=== PATIENT | female | born 1940 | race Caucasian/White ===

== ENCOUNTER 2017-03-16 09:31 | Emergency (ER) | payer MEDICARE, BC ==
[2017-03-16 09:36] VITALS: BP 141/76
--- NOTE | 2017-03-16 12:14 | EDM.PDOC ---
ED HPI NEURO - General Chief Complaint: Neuro Symptoms/Deficits Stated Complaint: blurry vision Time Seen by Provider: 03/16/17 09:45 Source of Information: Reports: Patient History Limitations: Reports: No limitations - History of Present Illness INITIAL COMMENTS - FREE TEXT/NARRATIVE: Patient presents to the ER today with blurred vision for one hour in her left eye. She states she has been having increased issues with dizziness and actually had a previous syncopal episode. She had that evaluated yesterday by Dr. Rico. He did lab work, put her on a holter monitor and ordered a carotid ultrasound and an echo. This am she awoke with the blurred vision which is a new concern for her. Patient states the episode lasted an hour but now is clear. Denies any other neurological changes. No numbness, tingling, weakness in her extremities. Has a mild headache. 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 Did check her blood sugar this am during this "spell" and it was 150. Denies any chest pain or shortness of breath. No falls. No recent head trauma. Symptom Onset Date: 03/16/17 Timing/Duration: Reports: Hour(s): Location (Neuro Complaint): Reports: other (eye) Quality (Neuro Complaint): Reports: other (blurred vision) Severity: moderate Associated Symptoms: Reports: headaches, syncope, other (dizziness). Denies: confusion, shortness of breath, weakness, fever/chills, nausea/vomiting - Related Data Allergies/ADRs: Allergies Allergy/AdvReac Type Severity Reaction Status Date / Time amiloride HCl Allergy Rash Verified 03/16/17 09:38 [From Moduretic] hydrochlorothiazide Allergy Rash Verified 03/16/17 09:38 [From Moduretic] Home Meds: Home Meds Cholecalciferol (Vitamin D3) [Vitamin D3] 5,000 unit PO BEDTIME 11/01/13 [ History] Furosemide 20 mg PO DAILY 11/01/13 [History] Magnesium Oxide 1,000 mg PO DAILY 11/01/13 [History] Simvastatin [Zocor] 40 mg PO BEDTIME 11/01/13 [History] Ubidecarenone [Co Q-10] 100 mg PO BEDTIME 11/01/13 [History] Vitamin B Complex [B Complex] 1 each PO DAILY 11/01/13 [History] Allopurinol [Allopurinol] 100 mg PO DAILY 08/29/14 [History] Aspirin [Low Dose Aspirin EC] 81 mg PO BEDTIME 08/29/14 [History] Carvedilol [Coreg] 3.125 mg PO BID 08/29/14 [History] Cranberry 2 cap PO BEDTIME 12/10/15 [History] Insulin Aspart [NovoLOG] 100 unit SQ ASDIRECTED 08/20/16 [History] Liraglutide [Victoza] 1.2 mg INJECT DAILY 08/20/16 [History] Insulin Detemir [Levemir] 48 units SUBCUT BEDTIME 08/21/16 [History] Diethylpropion HCl [Diethylpropion HCl ER] 75 mg PO DAILY 10/29/16 [History] Past Medical History HEENT History: Reports: Allergic rhinitis, Impaired vision Cardiovascular History: Reports: Bypass, High cholesterol, Hypertension Gastrointestinal History: Reports: GERD Genitourinary History: Reports: Urinary incontinence, UTI, recurrent Endocrine/Metabolic History: Reports: Diabetes, type II - Past Surgical History HEENT Surgical History: Reports: Detached retina Cardiovascular Surgical History: Reports: Valve replacement GI Surgical History: Reports: Cholecystectomy, Hernia, abdominal Female Surgical History: Reports: Hysterectomy Other Female Surgeries/Procedures: has a pacemaker. Other Musculoskeletal Surgeries/Procedures:: Also has 3 plates in her L) leg. Social & Family History - Tobacco Use Smoking Status *Q: Never Smoker Used Tobacco, but Quit: Yes Month Tobacco Last Used: many years ago Second Hand Smoke Exposure: No - Caffeine Use Caffeine Use: Reports: Coffee - Alcohol Use Days Per Week of Alcohol Use: 0 - Recreational Drug Use Recreational Drug Use: No ED ROS GENERAL - Review of Systems Review Of Systems: See Below Constitutional: Denies: fever, chills, malaise, weakness, fatigue, decreased appetite HEENT: Reports: Vertigo, Vision change. Denies: Ear discharge, Ear pain, Eye discharge, Eye pain, Rhinitis, Sinus problem, Throat pain Respiratory: Denies: Shortness of Breath, Wheezing, Cough, Sputum Cardiovascular: Reports: Syncope. Denies: Chest pain, Edema, Lightheadedness Endocrine: Denies: fatigue GI/Abdominal: Denies: Abdominal pain, Black stool, Bloody stool, Nausea, Vomiting : Reports: no symptoms Musculoskeletal: Reports: no symptoms Skin: Reports: no symptoms Neurological: Reports: Dizziness, Headache, Syncope Psychiatric: Reports: No symptoms ED EXAM, NEURO - Physical Exam Exam: See Below Exam Limited By: No limitations General Appearance: alert, WD/WN, no apparent distress Eye Exam: bilateral eye: EOMI, normal fundi, normal inspection, PERRL Nose: normal inspection, normal mucosa, no blood Throat/Mouth: Normal inspection, Normal oropharynx Head Exam: normocephalic Neck: normal inspection, supple, non-tender Respiratory/Chest: no respiratory distress, lungs clear, normal breath sounds Cardiovascular: normal peripheral pulses, regular rate, rhythm, no edema GI/Abdominal: normal bowel sounds, soft, non tender Neurological: alert, normal mood/affect, CN II-XII intact, oriented x 3 Extremities: normal inspection, normal range of motion, non-tender Psychiatric: normal affect, normal mood Skin Exam: Warm, Dry, Intact Course - Vital Signs Last Recorded V/S: Last Vital Signs Temp 96.2 F 03/16/17 09:32 Pulse 70 03/16/17 09:32 Resp 16 03/16/17 09:32 BP 141/76 H 03/16/17 09:32 Pulse Ox 96 03/16/17 09:32 - Orders/Labs/Meds Orders: Active Orders 24 hr Category Date Time Status Ang Head [CT] Stat Exams 03/16/17 09:55 Taken CTA Neck W & W/O Contrast [Ang Neck] [CT] Stat Exams 03/16/17 09:55 Taken Head wo Cont [CT] Stat Exams 03/16/17 09:43 Taken - Re-Assessments/Exams Free Text/Narrative Re-Assessment/Exam: 03/16/17 CT scan of head and CTA of head and neck are clear. Patient informed. ADvised that labs from yesterday were negative. Did contact Dr. Mendoza's office. Discussed with Dr. Rico. Will complete course of holter and see Dr. Mendoza for more thorough eye exam this afternoon after she leaves here. Departure - Departure Time of Disposition: 12:13 Disposition: Home, Self-Care 01 Condition: fair Clinical Impression: Blurred vision, left eye Referrals: Cholo Rico MD [Primary Care Provider] - Forms: ED Department Discharge Additional Instructions: 1. Finish course with Holter monitor as directed by Dr. Rico 2. Meclizine as needed for dizziness 3. Follow up with Dr. Mendoza at 1230 today 4. Follow up with Dr. Rico for results/further testing as needed if symptoms persist - My Orders Last 24 Hours: My Active Orders 03/16/17 09:43 Head wo Cont [CT] Stat 03/16/17 09:55 Ang Head [CT] Stat CTA Neck W & W/O Contrast [Ang Neck] [CT] Stat - Assessment/Plan Last 24 Hours: My Active Orders 03/16/17 09:43 Head wo Cont [CT] Stat 03/16/17 09:55 Ang Head [CT] Stat CTA Neck W & W/O Contrast [Ang Neck] [CT] Stat
== END 2017-03-16 12:20 | disposition home or self-care (01) ==
LOC: CC.ED 09:31
DX: H53.8 Other visual disturbances (principal); E78.00 Pure hypercholesterolemia, unspecified; I10 Essential (primary) hypertension; K21.9 Gastro-esophageal reflux disease without esophagitis; Z87.440 Personal history of urinary (tract) infections; E11.9 Type 2 diabetes mellitus without complications; Z79.82 Long term (current) use of aspirin; Z79.4 Long term (current) use of insulin; Z79.899 Other long term (current) drug therapy; Z88.8 Allergy status to other drugs, medicaments and biological substances; Z95.1 Presence of aortocoronary bypass graft; Z90.49 Acquired absence of other specified parts of digestive tract; Z90.710 Acquired absence of both cervix and uterus
CPT/HCPCS: 70450; 70496; 70498; 99283; 99284; Q9967

== ENCOUNTER 2017-04-04 14:00 | Inpatient (IN) | payer MEDICARE, BC ==
--- NOTE | 2017-04-04 19:04 | PCM.PN ---
- General Info Date of Service: 04/04/17 Functional Status: Reports: pain controlled, tolerating diet Pain Score: 3 - Review of Systems General: Reports: No Symptoms HEENT: Reports: no symptoms Pulmonary: Reports: no symptoms Cardiovascular: Reports: No Symptoms Gastrointestinal: Reports: No symptoms Genitourinary: Reports: no symptoms Musculoskeletal: Reports: joint pain (right posterior pelvis pain. ) Skin: Reports: bruising (right upper forehead with hematoma. ) Neurological: Reports: No Symptoms Psychiatric: Reports: no symptoms - Patient Data Weight - most recent: 190 lb Lab Results last 24 hrs: Laboratory Results - last 24 hr 04/04/17 Range/Units 17:46 POC Glucose 330 H (75-105) mg/dl - Exam General: alert, oriented, cooperative, no acute distress HEENT: Pupils equal, Pupils reactive, Mucous membr. moist/pink Neck: supple Lungs: Clear to auscultation, Normal respiratory effort Cardiovascular: Regular Rate, Regular Rhythm Abdomen: no tenderness Back Exam: Normal Inspection, Full Range of Motion Extremities: no edema, normal pulses, no tenderness/swelling, no clubbing, no cyanosis, no calf tenderness, other (right posterior hip/pelvis pain, tenderness. worse with ROM. Pulses +2, cap refill <2 sec, sensory/motor function intact. Neurovascular intact. ) Peripheral Pulses: 2+: Posterior Tibial (L), Posterior Tibial (R) Skin: warm, dry, intact, ecchymosis (right upper forehead with hematoma. ) Neurological: no new focal deficit Psy/Mental Status: alert, normal affect, normal mood - Problem List Review Problem List Initiated/Reviewed/Updated: Yes - Plan Plan:: This patient is a 77 year old female that presents to the hospital for Swing patient. Use this note as my swing admit note. Patient is coming from [place]. She was there for a granddaughters graduation when she tripped and fell on the pavement. She fell on Wednesday. She reports that she was admitted to the hospital there for right pelvis fx. Patient also has bruising to the right upper forehead with hematoma. The patient reports that she wanted to rehab here in [place] because she is from here. She was discharged from the hospital there yesterday and has been driving since then and arrived this evening after staying in a hotel last night. Patient is fully alert and oriented. She denies betancourt, dizziness, n, v, d, vision changes, fever, cp, soa, abd pain, urinary/bowel changes. She reports her pain is minimal, unless she moves her right hip area.
[2017-04-04] MEDS ORDERED: Ondansetron 4 MG/2 ML SDV IV PRN (19:37)
[2017-04-04] MEDS ORDERED: Morphine 2 MG/ML Syringe IVPUSH PRN (19:37)
[2017-04-04] MEDS ORDERED: Insulin Aspart 100 Units/ML 3 ML Pen SUBCUT SCH (19:37)
[2017-04-04] MEDS ORDERED: Enoxaparin 40 MG/0.4 ML Syringe SUBCUT SCH (20:00)
[2017-04-04] MEDS: Cholecalciferol (Vitamin D3) 1,000 Unit Tab PO SCH (20:28)
[2017-04-04] MEDS: Acetaminophen/HYDROcodone 325-5 MG Tab PO PRN (20:29)
[2017-04-04] MEDS: Simvastatin 40 MG Tab PO SCH (20:30)
[2017-04-04] MEDS: Carvedilol 3.125 MG Tab PO SCH (20:31)
[2017-04-04] MEDS: Insulin Detemir 100 Units/ML 3 ML Pen SUBCUT SCH (20:31)
[2017-04-04] MEDS: Docusate Sodium 100 MG Cap PO PRN (21:07)
[2017-04-04] MEDS: Enoxaparin 30 MG/0.3 ML Syringe SUBCUT SCH (21:08)
[2017-04-05] MEDS: Furosemide 20 MG Tab PO SCH (07:53)
[2017-04-05] MEDS: Docusate Sodium 100 MG Cap PO PRN (07:53)
[2017-04-05] MEDS: Allopurinol 100 MG Tab PO SCH (07:53)
[2017-04-05] MEDS: Vitamin B Complex Cap PO SCH (07:53)
[2017-04-05] MEDS: Ascorbic Acid 500 MG Tab PO SCH (07:54)
[2017-04-05] MEDS: Carvedilol 3.125 MG Tab PO SCH ×2 (07:54→19:44)
[2017-04-05] MEDS ORDERED: LIRAGLUTIDE SUBCUT SCH (08:00)
[2017-04-05] MEDS ORDERED: Aspirin 325 MG Tab PO SCH (08:00)
[2017-04-05] MEDS: Aspirin 325 MG Tab.EC PO SCH (08:11)
[2017-04-05] MEDS: BIOTIN 1 MG PO SCH (08:12)
[2017-04-05] MEDS: Insulin Aspart 100 Units/ML 3 ML Pen SUBCUT SCH ×3 (08:13→17:46)
[2017-04-05] MEDS: CO Q10 100 MG PO SCH (08:13)
[2017-04-05] MEDS: Acetaminophen/HYDROcodone 325-5 MG Tab PO PRN ×2 (08:19→12:40)
[2017-04-05] MEDS: LIRAGLUTIDE 1.2 MG SUBCUT SCH (11:58)
[2017-04-05] MEDS: Cholecalciferol (Vitamin D3) 1,000 Unit Tab PO SCH (19:44)
[2017-04-05] MEDS: Simvastatin 40 MG Tab PO SCH (19:53)
[2017-04-05] MEDS: Polyethylene Glycol 3350 Powder 17 GM Packet PO SCH (19:57)
[2017-04-05] MEDS: Enoxaparin 30 MG/0.3 ML Syringe SUBCUT SCH (20:00)
[2017-04-05] MEDS: Insulin Detemir 100 Units/ML 3 ML Pen SUBCUT SCH (20:51)
[2017-04-05] MEDS: Acetaminophen 500 MG Tab PO PRN (23:15)
[2017-04-06] MEDS: Polyethylene Glycol 3350 Powder 17 GM Packet PO SCH (08:28)
[2017-04-06] MEDS: Vitamin B Complex Cap PO SCH (08:29)
[2017-04-06] MEDS: Furosemide 20 MG Tab PO SCH (08:29)
[2017-04-06] MEDS: Carvedilol 3.125 MG Tab PO SCH ×2 (08:29→20:12)
[2017-04-06] MEDS: Allopurinol 100 MG Tab PO SCH (08:30)
[2017-04-06] MEDS: LIRAGLUTIDE 1.2 MG SUBCUT SCH (08:34)
[2017-04-06] MEDS: Insulin Aspart 100 Units/ML 3 ML Pen SUBCUT SCH ×4 (08:39→18:20)
[2017-04-06] MEDS: CO Q10 100 MG PO SCH (08:44)
[2017-04-06] MEDS: Ascorbic Acid 500 MG Tab PO SCH (08:45)
[2017-04-06] MEDS: Aspirin 325 MG Tab.EC PO SCH (08:45)
[2017-04-06] MEDS: BIOTIN 1 MG PO SCH (08:45)
[2017-04-06] MEDS: Acetaminophen 500 MG Tab PO PRN ×2 (09:45→17:11)
[2017-04-06] MEDS: Cholecalciferol (Vitamin D3) 1,000 Unit Tab PO SCH (20:13)
[2017-04-06] MEDS: Enoxaparin 30 MG/0.3 ML Syringe SUBCUT SCH (20:13)
[2017-04-06] MEDS: Simvastatin 40 MG Tab PO SCH (20:13)
[2017-04-06] MEDS: Acetaminophen/HYDROcodone 325-5 MG Tab PO PRN (20:14)
[2017-04-06] MEDS: Insulin Detemir 100 Units/ML 3 ML Pen SUBCUT SCH (20:18)
[2017-04-07] MEDS: Acetaminophen/HYDROcodone 325-5 MG Tab PO PRN ×2 (01:10→20:56)
[2017-04-07] MEDS: Insulin Aspart 100 Units/ML 3 ML Pen SUBCUT SCH ×5 (08:00→20:52)
[2017-04-07] MEDS: Aspirin 325 MG Tab.EC PO SCH (08:27)
[2017-04-07] MEDS: Ascorbic Acid 500 MG Tab PO SCH (08:27)
[2017-04-07] MEDS: BIOTIN 1 MG PO SCH (08:27)
[2017-04-07] MEDS: Polyethylene Glycol 3350 Powder 17 GM Packet PO SCH (08:28)
[2017-04-07] MEDS: Furosemide 20 MG Tab PO SCH (08:28)
[2017-04-07] MEDS: Carvedilol 3.125 MG Tab PO SCH ×2 (08:28→19:57)
[2017-04-07] MEDS: LIRAGLUTIDE 1.2 MG SUBCUT SCH (08:29)
[2017-04-07] MEDS: CO Q10 100 MG PO SCH (08:29)
[2017-04-07] MEDS: Vitamin B Complex Cap PO SCH (08:29)
[2017-04-07] MEDS: Allopurinol 100 MG Tab PO SCH (08:30)
[2017-04-07] MEDS: Acetaminophen 500 MG Tab PO PRN (10:38)
[2017-04-07] MEDS: Simvastatin 40 MG Tab PO SCH (19:56)
[2017-04-07] MEDS: Cholecalciferol (Vitamin D3) 1,000 Unit Tab PO SCH (19:57)
[2017-04-07] MEDS ORDERED: Insulin Detemir 100 Units/ML 3 ML Pen SUBCUT SCH (20:00)
[2017-04-07] MEDS: Enoxaparin 30 MG/0.3 ML Syringe SUBCUT SCH (20:56)
[2017-04-08] MEDS ORDERED: Insulin Detemir 100 Units/ML 3 ML Pen SUBCUT SCH ×2 (08:08→15:35)
[2017-04-08] MEDS: Polyethylene Glycol 3350 Powder 17 GM Packet PO SCH (08:42)
[2017-04-08] MEDS: Aspirin 325 MG Tab.EC PO SCH (08:43)
[2017-04-08] MEDS: Furosemide 20 MG Tab PO SCH (08:43)
[2017-04-08] MEDS: Vitamin B Complex Cap PO SCH (08:43)
[2017-04-08] MEDS: Carvedilol 3.125 MG Tab PO SCH ×2 (08:44→19:43)
[2017-04-08] MEDS: Ascorbic Acid 500 MG Tab PO SCH (08:44)
[2017-04-08] MEDS: Allopurinol 100 MG Tab PO SCH (08:44)
[2017-04-08] MEDS: BIOTIN 1 MG PO SCH (08:46)
[2017-04-08] MEDS: LIRAGLUTIDE 1.2 MG SUBCUT SCH (08:46)
[2017-04-08] MEDS: Insulin Aspart 100 Units/ML 3 ML Pen SUBCUT SCH ×7 (08:47→21:38)
[2017-04-08] MEDS: CO Q10 100 MG PO SCH (08:49)
[2017-04-08] MEDS: Acetaminophen 500 MG Tab PO PRN (10:32)
[2017-04-08] MEDS: Acetaminophen/HYDROcodone 325-5 MG Tab PO PRN ×2 (13:41→22:48)
[2017-04-08] MEDS: Oxyquinoline/Emollient 0.3% Oint 1 OZ Canister TOP PRN (13:42)
[2017-04-08] MEDS: Simvastatin 40 MG Tab PO SCH (19:44)
[2017-04-08] MEDS: Cholecalciferol (Vitamin D3) 1,000 Unit Tab PO SCH (19:44)
[2017-04-08] MEDS: Insulin Detemir 100 Units/ML 3 ML Pen SUBCUT SCH (19:45)
[2017-04-08] MEDS: Enoxaparin 30 MG/0.3 ML Syringe SUBCUT SCH (21:36)
[2017-04-09] MEDS: Carvedilol 3.125 MG Tab PO SCH ×2 (08:41→20:07)
[2017-04-09] MEDS: Polyethylene Glycol 3350 Powder 17 GM Packet PO SCH (08:41)
[2017-04-09] MEDS: Ascorbic Acid 500 MG Tab PO SCH (08:42)
[2017-04-09] MEDS: Vitamin B Complex Cap PO SCH (08:42)
[2017-04-09] MEDS: Furosemide 20 MG Tab PO SCH (08:42)
[2017-04-09] MEDS: Aspirin 325 MG Tab.EC PO SCH (08:42)
[2017-04-09] MEDS: Allopurinol 100 MG Tab PO SCH (08:43)
[2017-04-09] MEDS: BIOTIN 1 MG PO SCH (08:43)
[2017-04-09] MEDS: CO Q10 100 MG PO SCH (08:44)
[2017-04-09] MEDS: Insulin Aspart 100 Units/ML 3 ML Pen SUBCUT SCH ×7 (08:44→20:36)
[2017-04-09] MEDS: LIRAGLUTIDE 1.2 MG SUBCUT SCH (08:47)
--- NOTE | 2017-04-09 09:12 | PN ---
DATE: 04/08/2017 Corina Orellana apparently came in with a pelvic fracture. Seeing for swing bed. She is fairly comfortable. Otherwise, we are going to do some more lab work. Recheck her hemoglobin and panel-8 just because of the possibility of bleed in the pelvic fracture. EMILIE/TEREZA /[id number]
[2017-04-09] MEDS: Acetaminophen/HYDROcodone 325-5 MG Tab PO PRN ×3 (09:14→23:13)
[2017-04-09] MEDS: Cholecalciferol (Vitamin D3) 1,000 Unit Tab PO SCH (20:06)
[2017-04-09] MEDS: Simvastatin 40 MG Tab PO SCH (20:07)
[2017-04-09] MEDS: Enoxaparin 30 MG/0.3 ML Syringe SUBCUT SCH (20:07)
[2017-04-09] MEDS: Insulin Detemir 100 Units/ML 3 ML Pen SUBCUT SCH (20:08)
[2017-04-09] MEDS: Oxyquinoline/Emollient 0.3% Oint 1 OZ Canister TOP PRN (23:08)
[2017-04-10] MEDS: Vitamin B Complex Cap PO SCH (08:09)
[2017-04-10] MEDS: Carvedilol 3.125 MG Tab PO SCH ×2 (08:10→19:42)
[2017-04-10] MEDS: Ascorbic Acid 500 MG Tab PO SCH (08:10)
[2017-04-10] MEDS: Furosemide 20 MG Tab PO SCH (08:10)
[2017-04-10] MEDS: Allopurinol 100 MG Tab PO SCH (08:10)
[2017-04-10] MEDS: Aspirin 325 MG Tab.EC PO SCH (08:10)
[2017-04-10] MEDS: CO Q10 100 MG PO SCH (08:11)
[2017-04-10] MEDS: BIOTIN 1 MG PO SCH (08:12)
[2017-04-10] MEDS: Polyethylene Glycol 3350 Powder 17 GM Packet PO SCH (08:12)
[2017-04-10] MEDS: Insulin Aspart 100 Units/ML 3 ML Pen SUBCUT SCH ×7 (08:13→20:37)
[2017-04-10] MEDS: LIRAGLUTIDE 1.2 MG SUBCUT SCH (08:16)
[2017-04-10] MEDS: Ciprofloxacin 500 MG Tab PO SCH ×2 (11:59→18:19)
[2017-04-10] MEDS: Acetaminophen/HYDROcodone 325-5 MG Tab PO PRN (11:59)
[2017-04-10] MEDS: Simvastatin 40 MG Tab PO SCH (19:42)
[2017-04-10] MEDS: Cholecalciferol (Vitamin D3) 1,000 Unit Tab PO SCH (19:42)
[2017-04-10] MEDS: Insulin Detemir 100 Units/ML 3 ML Pen SUBCUT SCH (19:43)
[2017-04-10] MEDS: Enoxaparin 30 MG/0.3 ML Syringe SUBCUT SCH (20:36)
[2017-04-11] MEDS: Acetaminophen/HYDROcodone 325-5 MG Tab PO PRN ×2 (04:10→23:34)
[2017-04-11] MEDS: Ciprofloxacin 500 MG Tab PO SCH ×2 (06:47→19:45)
[2017-04-11] MEDS: BIOTIN 1 MG PO SCH (07:59)
[2017-04-11] MEDS: Vitamin B Complex Cap PO SCH (08:00)
[2017-04-11] MEDS: Ascorbic Acid 500 MG Tab PO SCH (08:00)
[2017-04-11] MEDS: Aspirin 325 MG Tab.EC PO SCH (08:00)
[2017-04-11] MEDS: Allopurinol 100 MG Tab PO SCH (08:00)
[2017-04-11] MEDS: Furosemide 20 MG Tab PO SCH (08:00)
[2017-04-11] MEDS: CO Q10 100 MG PO SCH (08:01)
[2017-04-11] MEDS: Polyethylene Glycol 3350 Powder 17 GM Packet PO SCH (08:02)
[2017-04-11] MEDS: Carvedilol 3.125 MG Tab PO SCH ×2 (08:10→19:45)
[2017-04-11] MEDS: LIRAGLUTIDE 1.2 MG SUBCUT SCH (08:11)
[2017-04-11] MEDS: Insulin Aspart 100 Units/ML 3 ML Pen SUBCUT SCH ×7 (08:13→21:47)
[2017-04-11] MEDS: Cholecalciferol (Vitamin D3) 1,000 Unit Tab PO SCH (19:44)
[2017-04-11] MEDS: Simvastatin 40 MG Tab PO SCH (19:45)
[2017-04-11] MEDS: Insulin Detemir 100 Units/ML 3 ML Pen SUBCUT SCH (19:45)
[2017-04-11] MEDS: Enoxaparin 30 MG/0.3 ML Syringe SUBCUT SCH (21:48)
[2017-04-12] MEDS: Vitamin B Complex Cap PO SCH (08:16)
[2017-04-12] MEDS: Allopurinol 100 MG Tab PO SCH (08:16)
[2017-04-12] MEDS: Aspirin 325 MG Tab.EC PO SCH (08:16)
[2017-04-12] MEDS: Carvedilol 3.125 MG Tab PO SCH ×2 (08:16→19:45)
[2017-04-12] MEDS: Polyethylene Glycol 3350 Powder 17 GM Packet PO SCH (08:16)
[2017-04-12] MEDS: Ascorbic Acid 500 MG Tab PO SCH (08:16)
[2017-04-12] MEDS: BIOTIN 1 MG PO SCH (08:16)
[2017-04-12] MEDS: Ciprofloxacin 500 MG Tab PO SCH ×2 (08:17→19:46)
[2017-04-12] MEDS: Furosemide 20 MG Tab PO SCH (08:17)
[2017-04-12] MEDS: Insulin Aspart 100 Units/ML 3 ML Pen SUBCUT SCH ×7 (08:18→21:09)
[2017-04-12] MEDS: LIRAGLUTIDE 1.2 MG SUBCUT SCH (08:19)
[2017-04-12] MEDS: CO Q10 100 MG PO SCH (08:19)
[2017-04-12] MEDS: Cholecalciferol (Vitamin D3) 1,000 Unit Tab PO SCH (19:45)
[2017-04-12] MEDS: Simvastatin 40 MG Tab PO SCH (19:46)
[2017-04-12] MEDS: Insulin Detemir 100 Units/ML 3 ML Pen SUBCUT SCH (19:46)
[2017-04-12] MEDS: Enoxaparin 30 MG/0.3 ML Syringe SUBCUT SCH (21:10)
[2017-04-13] MEDS: BIOTIN 1 MG PO SCH (07:54)
[2017-04-13] MEDS: Ciprofloxacin 500 MG Tab PO SCH ×2 (07:54→19:59)
[2017-04-13] MEDS: Carvedilol 3.125 MG Tab PO SCH ×2 (07:54→20:00)
[2017-04-13] MEDS: Furosemide 20 MG Tab PO SCH (07:55)
[2017-04-13] MEDS: Aspirin 325 MG Tab.EC PO SCH (07:55)
[2017-04-13] MEDS: Polyethylene Glycol 3350 Powder 17 GM Packet PO SCH (07:56)
[2017-04-13] MEDS: Vitamin B Complex Cap PO SCH (07:56)
[2017-04-13] MEDS: Allopurinol 100 MG Tab PO SCH (07:57)
[2017-04-13] MEDS: Ascorbic Acid 500 MG Tab PO SCH (07:57)
[2017-04-13] MEDS: CO Q10 100 MG PO SCH (07:57)
[2017-04-13] MEDS: Insulin Aspart 100 Units/ML 3 ML Pen SUBCUT SCH ×7 (07:59→20:04)
[2017-04-13] MEDS: LIRAGLUTIDE 1.2 MG SUBCUT SCH (08:00)
[2017-04-13] MEDS ORDERED: Polyethylene Glycol 3350 Powder 17 GM Packet PO PRN (08:07)
[2017-04-13] MEDS: Acetaminophen 500 MG Tab PO PRN (10:14)
--- NOTE | 2017-04-13 10:38 | PN ---
DATE: 04/13/2017 S: Corina Orellana came in with fractured pelvis, head injury. She said she is more dizzy today. O: HEAD: On examination, she has a large hematoma in right frontotemporal area. EYES: Her pupil EOMs are intact. ASSESSMENT: HEAD INJURY. P: We will CTA her head today to make sure something has not showed up from previous CT a week ago. EMILIE/TEREZA /[id number]
[2017-04-13] MEDS: Simvastatin 40 MG Tab PO SCH (19:59)
[2017-04-13] MEDS: Cholecalciferol (Vitamin D3) 1,000 Unit Tab PO SCH (20:00)
[2017-04-13] MEDS: Enoxaparin 30 MG/0.3 ML Syringe SUBCUT SCH (20:01)
[2017-04-13] MEDS: Insulin Detemir 100 Units/ML 3 ML Pen SUBCUT SCH (20:03)
[2017-04-14] MEDS: Ciprofloxacin 500 MG Tab PO SCH ×2 (08:32→20:39)
[2017-04-14] MEDS: Ascorbic Acid 500 MG Tab PO SCH (08:32)
[2017-04-14] MEDS: Aspirin 325 MG Tab.EC PO SCH (08:32)
[2017-04-14] MEDS: Carvedilol 3.125 MG Tab PO SCH ×2 (08:32→20:39)
[2017-04-14] MEDS: Vitamin B Complex Cap PO SCH (08:32)
[2017-04-14] MEDS: Allopurinol 100 MG Tab PO SCH (08:32)
[2017-04-14] MEDS: Furosemide 20 MG Tab PO SCH (08:32)
[2017-04-14] MEDS: BIOTIN 1 MG PO SCH (08:33)
[2017-04-14] MEDS: Insulin Aspart 100 Units/ML 3 ML Pen SUBCUT SCH ×7 (08:34→20:43)
[2017-04-14] MEDS: LIRAGLUTIDE 1.2 MG SUBCUT SCH (08:36)
[2017-04-14] MEDS: CO Q10 100 MG PO SCH (08:42)
[2017-04-14] MEDS: Acetaminophen 500 MG Tab PO PRN (08:42)
[2017-04-14] MEDS: Enoxaparin 30 MG/0.3 ML Syringe SUBCUT SCH (20:37)
[2017-04-14] MEDS: Cholecalciferol (Vitamin D3) 1,000 Unit Tab PO SCH (20:38)
[2017-04-14] MEDS: Simvastatin 40 MG Tab PO SCH (20:39)
[2017-04-14] MEDS: Insulin Detemir 100 Units/ML 3 ML Pen SUBCUT SCH (20:41)
[2017-04-15] MEDS: Aspirin 325 MG Tab.EC PO SCH (08:08)
[2017-04-15] MEDS: Ascorbic Acid 500 MG Tab PO SCH (08:08)
[2017-04-15] MEDS: Furosemide 20 MG Tab PO SCH (08:08)
[2017-04-15] MEDS: Vitamin B Complex Cap PO SCH (08:08)
[2017-04-15] MEDS: Carvedilol 3.125 MG Tab PO SCH ×2 (08:09→20:18)
[2017-04-15] MEDS: Ciprofloxacin 500 MG Tab PO SCH ×2 (08:09→20:18)
[2017-04-15] MEDS: BIOTIN 1 MG PO SCH (08:09)
[2017-04-15] MEDS: Allopurinol 100 MG Tab PO SCH (08:09)
[2017-04-15] MEDS: Acetaminophen 500 MG Tab PO PRN (08:13)
[2017-04-15] MEDS: Insulin Aspart 100 Units/ML 3 ML Pen SUBCUT SCH ×7 (08:14→20:37)
[2017-04-15] MEDS: CO Q10 100 MG PO SCH (08:15)
[2017-04-15] MEDS: LIRAGLUTIDE 1.2 MG SUBCUT SCH (08:15)
[2017-04-15] MEDS: Enoxaparin 30 MG/0.3 ML Syringe SUBCUT SCH (20:17)
[2017-04-15] MEDS: Cholecalciferol (Vitamin D3) 1,000 Unit Tab PO SCH (20:18)
[2017-04-15] MEDS: Simvastatin 40 MG Tab PO SCH (20:18)
[2017-04-15] MEDS: Insulin Detemir 100 Units/ML 3 ML Pen SUBCUT SCH (20:37)
[2017-04-15] MEDS: Acetaminophen/HYDROcodone 325-5 MG Tab PO PRN (23:02)
[2017-04-16 07:40] VITALS: BP 137/63
[2017-04-16] MEDS: Ciprofloxacin 500 MG Tab PO SCH (08:10)
[2017-04-16] MEDS: Carvedilol 3.125 MG Tab PO SCH (08:10)
[2017-04-16] MEDS: Allopurinol 100 MG Tab PO SCH (08:10)
[2017-04-16] MEDS: BIOTIN 1 MG PO SCH (08:10)
[2017-04-16] MEDS: Furosemide 20 MG Tab PO SCH (08:11)
[2017-04-16] MEDS: Vitamin B Complex Cap PO SCH (08:11)
[2017-04-16] MEDS: Ascorbic Acid 500 MG Tab PO SCH (08:11)
[2017-04-16] MEDS: Aspirin 325 MG Tab.EC PO SCH (08:11)
[2017-04-16] MEDS: LIRAGLUTIDE 1.2 MG SUBCUT SCH (08:12)
[2017-04-16] MEDS: Insulin Aspart 100 Units/ML 3 ML Pen SUBCUT SCH ×4 (08:14→12:22)
[2017-04-16] MEDS: CO Q10 100 MG PO SCH (08:19)
[2017-04-16] MEDS: Acetaminophen 500 MG Tab PO PRN (09:45)
--- NOTE | 2017-04-19 07:27 | DISCH ---
HOSPITAL COURSE: This is an elderly white female, who fell and broke her pelvis, was brought into the hospital for PT, OT, and pain control; had a UTI, at the same time, started on Cipro 500 b.i.d. During her stay here, she slowly improved. At the time of discharge, she was ambulating and demanded to go home and was adequately treated for UTI. Lab here in the hospital, did show her hemoglobin dropped little bit, did stabilize above 10. Blood sugars were fairly stable also. DISPOSITION: The patient is now discharged home. We will see her back in clinic in 5 days. DISCHARGE MEDICATIONS: Hospital medications minus Cipro, plus Diflucan 100 daily for 10 days for yeast. DISCHARGE DIAGNOSIS: 1. PELVIC FRACTURE. 2. URINARY TRACT INFECTION. 3. HYPERTENSION. 4. HYPERLIPIDEMIA. 5. CORONARY ARTERY DISEASE. GRICELDA /[id number]
== END 2017-04-16 15:25 | disposition home or self-care (01) | DRG 560 ==
LOC: CC.MS 14:00 → UNDOADMIN 14:00 → CC.MS 17:40
PROVIDERS: ADMIT Nurse Practitioner; ATTEND General Practice
DX: S32.9XXD Fracture of unspecified parts of lumbosacral spine and pelvis, subsequent encounter for fracture with routine healing (principal); N39.0 Urinary tract infection, site not specified; W01.0XXD Fall on same level from slipping, tripping and stumbling without subsequent striking against object, subsequent encounter; S00.83XD Contusion of other part of head, subsequent encounter; R42 Dizziness and giddiness; I10 Essential (primary) hypertension; E78.5 Hyperlipidemia, unspecified; I25.10 Atherosclerotic heart disease of native coronary artery without angina pectoris; B96.20 Unspecified Escherichia coli [E. coli] as the cause of diseases classified elsewhere; Z79.82 Long term (current) use of aspirin
CPT/HCPCS: 36415; 70450; 80048; 80053; 81001; 82962; 85025; 85610; 85730; 87086; 87088; 87186; 97110-GP; 97161-GP; 97530-GP; A6250; A9270-GY; J1650; J1815-GY

== ENCOUNTER 2017-04-29 20:41 | Emergency (ER) | payer MEDICARE, BC ==
[~2017-04-29 20:41] MED LIST: Sulfamethoxazole/Trimethoprim 800-160 MG Tab PO ONE
[2017-04-29 20:46] VITALS: BP 176/83
--- NOTE | 2017-04-29 21:22 | EDM.PDOC ---
ED HPI GENERAL MEDICAL PROBLEM - General Chief Complaint: General Stated Complaint: "not feeling well" Time Seen by Provider: 04/29/17 21:12 Source of Information: Reports: Patient, Family () History Limitations: Reports: No Limitations - History of Present Illness INITIAL COMMENTS - FREE TEXT/NARRATIVE: States that she was in [place] all day and then went to [facility] and felt like she was going to get sick. Burped a couple of times and then after getting into the car vomited large amount of bright yellow emesis. Then she slept most of the way home and when getting home she sat up and then vomited again. Now she feels slightly nauseated but not to the point of vomiting. No fever or diarrhea with it. Her and her both ate lux[place] for dinner and he feels well. No burning on urination and doesn't feel that she has been going more. Last UTI she had in the hospital she didn't have any symptoms with it. Onset: Sudden Location: Reports: Abdomen Associated Symptoms: Reports: Nausea/Vomiting - Related Data Allergies Allergy/AdvReac Type Severity Reaction Status Date / Time amiloride HCl Allergy Rash Verified 04/29/17 20:46 [From Moduretic] hydrochlorothiazide Allergy Rash Verified 04/29/17 20:46 [From Moduretic] Home Meds: Home Meds Cholecalciferol (Vitamin D3) [Vitamin D3] 5,000 unit PO BEDTIME 11/01/13 [ History] Furosemide 20 mg PO DAILY 11/01/13 [History] Magnesium Oxide 500 mg PO DAILY 11/01/13 [History] Simvastatin [Zocor] 40 mg PO BEDTIME 11/01/13 [History] Ubidecarenone [Co Q-10] 100 mg PO DAILY 11/01/13 [History] Vitamin B Complex [B Complex] 1 each PO DAILY 11/01/13 [History] Allopurinol 100 mg PO DAILY 08/29/14 [History] Carvedilol [Coreg] 3.125 mg PO BID 08/29/14 [History] Liraglutide [Victoza] 1.2 mg SUBCUT DAILY 08/20/16 [History] Insulin Detemir [Levemir] 40 units SUBCUT BEDTIME 08/21/16 [History] Ascorbic Acid [Vitamin C] 500 mg PO DAILY 04/03/17 [History] Aspirin 325 mg PO DAILY 04/03/17 [History] Biotin 1 mg PO DAILY 04/03/17 [History] Hydrocodone/Acetaminophen [Hydrocodon-Acetaminophen 5-325] 1 - 2 tab PO Q4H PRN 04/03/17 [History] Acetaminophen [Tylenol Extra Strength] 1,000 mg PO Q6H PRN #0 tablet 04/16/17 [ Rx] Insulin Aspart [NovoLOG] 10 unit SUBCUT TIDMEALS #5 pen 04/16/17 [Rx] Polyethylene Glycol 3350 [MiraLAX] 17 gm PO DAILY PRN #30 packet 04/16/17 [Rx] Past Medical History HEENT History: Reports: Allergic Rhinitis, Impaired Vision Cardiovascular History: Reports: Bypass, High Cholesterol, Hypertension Gastrointestinal History: Reports: None Genitourinary History: Reports: Urinary Incontinence, UTI, Recurrent 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 Social & Family History - Family History Family Medical History: Noncontributory - Tobacco Use Smoking Status *Q: Never Smoker Used Tobacco, but Quit: Yes Month Tobacco Last Used: many years ago Second Hand Smoke Exposure: No - Caffeine Use Caffeine Use: Reports: Coffee - Alcohol Use Days Per Week of Alcohol Use: 0 - Recreational Drug Use Recreational Drug Use: No ED ROS GENERAL - Review of Systems Review Of Systems: See Below Constitutional: Denies: Fever, Chills Respiratory: Reports: No Symptoms Cardiovascular: Reports: No Symptoms GI/Abdominal: Reports: Nausea, Vomiting. Denies: Constipation, Diarrhea : Reports: No Symptoms Musculoskeletal: Reports: No Symptoms Skin: Reports: No Symptoms Neurological: Reports: No Symptoms ED EXAM, GENERAL - Physical Exam Exam: See Below Exam Limited By: No Limitations General Appearance: Alert, WD/WN, No Apparent Distress Ears: Normal External Exam, Normal Canal, Normal TMs Throat/Mouth: Normal Inspection, Normal Oropharynx, Normal Voice Head: Atraumatic, Normocephalic Neck: Normal Inspection, Supple, Non-Tender, Full Range of Motion Respiratory/Chest: No Respiratory Distress, Lungs Clear, Normal Breath Sounds GI/Abdominal: Soft, Non-Tender Extremities: Normal Inspection, No Pedal Edema, Normal Capillary Refill Neurological: Alert, Oriented Skin Exam: Warm, Dry Course - Vital Signs Last Recorded V/S: Last Vital Signs Temp 98.6 F 04/29/17 20:43 Pulse 66 04/29/17 20:43 Resp 20 04/29/17 20:43 BP 176/83 H 04/29/17 20:43 Pulse Ox 97 04/29/17 20:43 - Orders/Labs/Meds Orders: Active Orders 24 hr Category Date Time Status BASIC METABOLIC PANEL,BMP [CHEM] Stat Lab 04/29/17 20:53 Ordered CBC WITH AUTO DIFF [HEME] Stat Lab 04/29/17 20:53 Ordered UA W/MICROSCOPIC [URIN] Stat Lab 04/29/17 21:04 Ordered Departure - Departure Time of Disposition: 21:25 Disposition: Home, Self-Care 01 Condition: Good Clinical Impression: UTI, Urinary tract infectious disease - Discharge Information Forms: ED Department Discharge Additional Instructions: Bactrim DS - 1 tablet twice a day for 10 days. 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 Push fluids as much as possible you may continue to have some nausea but it should gradually decrease. Recheck with Dr. Rico in 10-14 days for recheck on urine to make sure it is gone You will need to call the clinic to make the appointment. - Problem List & Annotations (1) UTI, Urinary tract infectious disease SNOMED Code(s): 02274964 Code(s): N39.0 - URINARY TRACT INFECTION, SITE NOT SPECIFIED Status: Acute Priority: High Current Visit: Yes - Problem List Review Problem List Initiated/Reviewed/Updated: Yes - My Orders Last 24 Hours: My Active Orders 04/29/17 20:53 BASIC METABOLIC PANEL,BMP [CHEM] Stat CBC WITH AUTO DIFF [HEME] Stat 04/29/17 21:04 UA W/MICROSCOPIC [URIN] Stat - Assessment/Plan Last 24 Hours: My Active Orders 04/29/17 20:53 BASIC METABOLIC PANEL,BMP [CHEM] Stat CBC WITH AUTO DIFF [HEME] Stat 04/29/17 21:04 UA W/MICROSCOPIC [URIN] Stat
[2017-04-29] MEDS ORDERED: Take Home: Sulfamethoxazole/Trimethoprim 800-160 MG Tab, 2 Tab Pack PO ONE (21:30)
== END 2017-04-29 21:43 | disposition home or self-care (01) ==
LOC: CC.ED 20:41
DX: N39.0 Urinary tract infection, site not specified (principal); I10 Essential (primary) hypertension; E78.00 Pure hypercholesterolemia, unspecified; E11.9 Type 2 diabetes mellitus without complications; Z95.2 Presence of prosthetic heart valve; Z90.49 Acquired absence of other specified parts of digestive tract; Z98.890 Other specified postprocedural states; Z95.1 Presence of aortocoronary bypass graft; Z87.891 Personal history of nicotine dependence; Z79.4 Long term (current) use of insulin; Z79.82 Long term (current) use of aspirin; Z79.899 Other long term (current) drug therapy; Z88.8 Allergy status to other drugs, medicaments and biological substances
CPT/HCPCS: 36415; 80048; 81001; 85025; 99283; A9270

== ENCOUNTER 2018-04-07 19:30 | Emergency (ER) | payer MEDICARE, BC ==
[2018-04-07 19:42] VITALS: BP 152/72
--- NOTE | 2018-04-07 19:45 | EDM.PDOC ---
ED HPI GENERAL MEDICAL PROBLEM - General Chief Complaint: Lower Extremity Injury/Pain Stated Complaint: right hip pain s/p fall Time Seen by Provider: 04/07/18 19:32 - History of Present Illness INITIAL COMMENTS - FREE TEXT/NARRATIVE: Corina is a 78 year old female who presents to the ED with c/o right hip pain. She reports she was walking in her garage and tripping on something. She then fell, landing on her right side. She reports she was able to get up and cooked supper. She then reports that they were going to go out for a drive, so she tried to get in the pickup. She stepped up on the rail and her "leg gave out." She reports she has not ambulated on it since. Reports the pain is localized to her right hip. She is not tender to touch. She denies any numbness or tingling. She is able to wiggle her toes. Unable to lift hip without pain. She has not taken anything for the pain. Pain is worsened with movement and weight bearing. Onset: Today, Sudden Onset Date: 04/07/18 Onset Time: 17:00 Duration: Constant Location: Reports: Lower Extremity, Right Quality: Reports: Ache Right Hip Pain Score (Numeric/FACES): 1 - Related Data Allergies Allergy/AdvReac Type Severity Reaction Status Date / Time amiloride HCl Allergy Rash Verified 04/07/18 19:42 [From Moduretic] hydrochlorothiazide Allergy Rash Verified 04/07/18 19:42 [From Moduretic] Home Meds: Home Meds Cholecalciferol (Vitamin D3) [Vitamin D3] 5,000 unit PO BEDTIME 11/01/13 [ History] Furosemide 20 mg PO DAILY 11/01/13 [History] Magnesium Oxide 500 mg PO DAILY 11/01/13 [History] Simvastatin [Zocor] 40 mg PO BEDTIME 11/01/13 [History] Ubidecarenone [Co Q-10] 100 mg PO DAILY 11/01/13 [History] Vitamin B Complex [B Complex] 1 each PO DAILY 11/01/13 [History] Allopurinol 100 mg PO DAILY 08/29/14 [History] Carvedilol [Coreg] 3.125 mg PO BID 08/29/14 [History] Liraglutide [Victoza] 1.2 mg SUBCUT DAILY 08/20/16 [History] Insulin Detemir [Levemir] 28 units SUBCUT BEDTIME 08/21/16 [History] Ascorbic Acid [Vitamin C] 500 mg PO DAILY 04/03/17 [History] Acetaminophen [Tylenol Extra Strength] 1,000 mg PO Q6H PRN #0 tablet 04/16/17 [ Rx] Insulin Aspart [NovoLOG] 10 unit SUBCUT TIDMEALS #5 pen 04/16/17 [Rx] Polyethylene Glycol 3350 [MiraLAX] 17 gm PO DAILY PRN #30 packet 04/16/17 [Rx] Aspirin [Ecotrin] 81 mg PO DAILY 04/07/18 [History] D-Mannose 1 tsp PO DAILY 04/07/18 [History] Estradiol [Yuvafem] 10 mcg PO TUSA 04/07/18 [History] Sulfamethoxazole/Trimethoprim [Bactrim Ds Tablet] 1 tab PO BID 04/07/18 [History ] methylPREDNISolone [Medrol] 1 tab PO DAILY 04/07/18 [History] Past Medical History HEENT History: Reports: Allergic Rhinitis, Impaired Vision Cardiovascular History: Reports: Bypass, High Cholesterol, Hypertension Gastrointestinal History: Reports: None Genitourinary History: Reports: Urinary Incontinence, UTI, Recurrent 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 Social & Family History - Family History Family Medical History: Noncontributory - Caffeine Use Caffeine Use: Reports: Coffee Review of Systems - Review of Systems Review Of Systems: ROS reveals no pertinent complaints other than HPI. ED EXAM, GENERAL - Physical Exam Exam: See Below Exam Limited By: No Limitations General Appearance: Alert, WD/WN, No Apparent Distress Peripheral Pulses: 2+: Posterior Tibial (L), Posterior Tibial (R), Dorsalis Pedis (L), Dorsalis Pedis (R) Extremities: Normal Inspection, No Pedal Edema, Normal Capillary Refill, Leg Pain (right hip), Limited Range of Motion. No: Increased Warmth, Redness Neurological: Alert, Oriented, CN II-XII Intact, Normal Cognition, Normal Gait, Normal Reflexes, No Motor/Sensory Deficits Psychiatric: Normal Affect, Normal Mood Course - Vital Signs Last Recorded V/S: Last Vital Signs Temp 97.8 F 04/07/18 19:32 Pulse 72 04/07/18 19:32 Resp 20 04/07/18 19:32 BP 152/72 H 04/07/18 19:32 Pulse Ox 97 04/07/18 19:32 - Orders/Labs/Meds Orders: Active Orders 24 hr Category Date Time Status Hip Min 2V or 3V Rt [CR] Stat Exams 04/07/18 19:44 Taken - Re-Assessments/Exams Free Text/Narrative Re-Assessment/Exam: Xray negative for acute fracture. Departure - Departure Time of Disposition: 20:23 Disposition: Home, Self-Care 01 Condition: Good Clinical Impression: Contusion of right hip, initial encounter Fall Qualifiers: Encounter type: initial encounter Qualified Code(s): W19.XXXA - Unspecified fall, initial encounter - Discharge Information Instructions: Hip Pain, Fall Prevention in Hospitals, Adult Referrals: Cholo Rico MD [Primary Care Provider] - Forms: ED Department Discharge Additional Instructions: Aleve three times daily as needed for pain Alternate ice and heat as needed for comfort Rest affected area until pain improves. This may require using a walker or cane. Referral to PT for balance training and right hip pain Follow up with PCP if symptoms worsen or do not improve - My Orders Last 24 Hours: My Active Orders 04/07/18 19:44 Hip Min 2V or 3V Rt [CR] Stat - Assessment/Plan Last 24 Hours: My Active Orders 04/07/18 19:44 Hip Min 2V or 3V Rt [CR] Stat
== END 2018-04-07 20:30 | disposition home or self-care (01) ==
LOC: CC.ED 19:30
DX: S70.01XA Contusion of right hip, initial encounter (principal); I10 Essential (primary) hypertension; E11.9 Type 2 diabetes mellitus without complications; Z88.8 Allergy status to other drugs, medicaments and biological substances; Z79.899 Other long term (current) drug therapy; W19.XXXA Unspecified fall, initial encounter
CPT/HCPCS: 99283

== ENCOUNTER 2019-08-13 00:42 | Observation (INO) | payer MEDICARE, BC ==
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
[2019-08-13 01:25] LABS: CHLORIDE,CL 101 mEq/L (98-106); SODIUM,NA 139 mEq/L (136-145)
[2019-08-13] MEDS ORDERED: Sodium Chloride 0.9% 10 ML Syringe FLUSH PRN (01:40)
[2019-08-13 07:15] LABS: CHLORIDE,CL 103 mEq/L (98-106); SODIUM,NA 140 mEq/L (136-145)
[2019-08-13 07:59] VITALS: BP 125/59; PULSE 67
[2019-08-13] MEDS ORDERED: Carvedilol 3.125 MG Tab PO SCH (08:00)
[2019-08-13] MEDS ORDERED: Non-Formulary Medication 1 Each (Cranberry [Cranberry] 500 MG) PO SCH (08:00)
[2019-08-13] MEDS ORDERED: TORSEMIDE 20 MG PO SCH (08:00)
[2019-08-13] MEDS ORDERED: Non-Formulary Medication 1 Each (Liraglutide [Victoza] 1.8 MG) SUBCUT SCH (08:00)
[2019-08-13] MEDS ORDERED: Allopurinol 100 MG Tab*PT OWN MED PO SCH (08:00)
[2019-08-13] MEDS ORDERED: Non-Formulary Medication 1 Each (Insulin Aspart [Novolog] 10 UNIT) SUBCUT SCH (08:00)
[2019-08-13] MEDS ORDERED: Non-Formulary Medication 1 Each (Biotin [Biotin] 10,000 MCG) PO SCH (08:00)
[2019-08-13] MEDS ORDERED: Non-Formulary Medication 1 Each (Ascorbic Acid [Vitamin C] 500 MG) PO SCH (08:00)
[2019-08-13] MEDS ORDERED: Non-Formulary Medication 1 Each (Ubidecarenone [Co Q-10] 100 MG) PO SCH (08:00)
[2019-08-13] MEDS ORDERED: Non-Formulary Medication 1 Each (Magnesium Oxide [Magnesium Oxide] 500 MG) PO SCH (08:00)
[2019-08-13] MEDS ORDERED: Insulin Lispro 100 Units/ML 3 ML Vial SUBCUT SCH (09:00)
[2019-08-13] MEDS: ROSUVASTATIN CALCIUM 20 MG PO SCH ×2 (09:21→09:24)
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
[2019-08-13] MEDS ORDERED: Non-Formulary Medication 1 Each (Cholecalciferol (Vitamin D3) [Vitamin D3] 5,000 UNIT) PO SCH (20:00)
== END 2019-08-13 11:20 ==
LOC: CC.ED 00:42 → CC.MS 01:40
PROVIDERS: ADMIT Nurse Practitioner; ATTEND Nurse Practitioner
DX: I48.91 Unspecified atrial fibrillation (principal); I12.9 Hypertensive chronic kidney disease with stage 1 through stage 4 chronic kidney disease, or unspecified chronic kidney disease; N18.9 Chronic kidney disease, unspecified; E78.00 Pure hypercholesterolemia, unspecified; Z79.899 Other long term (current) drug therapy; Z79.4 Long term (current) use of insulin; Z79.01 Long term (current) use of anticoagulants; Z88.8 Allergy status to other drugs, medicaments and biological substances
CPT/HCPCS: 36415; 71046; 80048; 80053; 82962; 83735; 84443; 84484; 85025; 85610; 93005; 99285-25; A9270-GY; G0378

== ENCOUNTER 2019-10-07 13:20 | Observation (INO) | payer MEDICARE, BC ==
--- NOTE | 2019-10-07 13:30 | EDM.PDOC ---
ED HPI GENERAL MEDICAL PROBLEM - General Chief Complaint: Syncope Stated Complaint: DIZZY Time Seen by Provider: 10/07/19 13:30 Source of Information: Reports: Patient, Family History Limitations: Reports: No Limitations - History of Present Illness INITIAL COMMENTS - FREE TEXT/NARRATIVE: in with c/o was at worship and suddenly felt as if she was going to pass out, the pt advised she did not fully pass out, does have a hx of CAD and a- fib, has had 1 vessel by pass and 1 valve replaced. is on Eliquis. no sob, no cp , no abd pain, did have nausea, no vomiting, no fever, no unusual neck/back pain or stiffness. Onset: Today, Sudden Duration: Minutes: Quality: Reports: Same as Previous Episode. Denies: Pressure, Sharp Severity: Moderate Improves with: Reports: None Worsens with: Reports: None Associated Symptoms: Reports: Nausea/Vomiting, Syncope, Weakness. 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: Reports: Other (see below) (none) - Related Data Allergies Allergy/AdvReac Type Severity Reaction Status Date / Time amiloride HCl Allergy Rash Verified 10/07/19 13:46 [From Moduretic] hydrochlorothiazide Allergy Rash Verified 10/07/19 13:46 [From Moduretic] Home Meds: Home Meds Cholecalciferol (Vitamin D3) [Vitamin D3] 5,000 unit PO BEDTIME 11/01/13 [ History] Magnesium Oxide 500 mg PO DAILY 11/01/13 [History] Ubidecarenone [Co Q-10] 100 mg PO DAILY 11/01/13 [History] Allopurinol 100 mg PO DAILY 08/29/14 [History] Liraglutide [Victoza] 1.8 mg SUBCUT DAILY 08/20/16 [History] Ascorbic Acid [Vitamin C] 500 mg PO BID 04/03/17 [History] Insulin Aspart [NovoLOG] 10 unit SUBCUT TIDMEALS #5 pen 04/16/17 [Rx] Estradiol [Yuvafem] 0.5 mg PO DAILY 04/07/18 [History] Biotin 10,000 mcg PO DAILY 04/27/19 [History] Cranberry 500 mg PO DAILY 04/27/19 [History] Rosuvastatin Calcium 20 mg PO DAILY 04/27/19 [History] Torsemide 20 mg PO BID 04/27/19 [History] Apixaban [Eliquis] 5 mg PO BID 08/13/19 [History] Insulin Detemir [Levemir] 27 unit SUBCUT DAILY 08/13/19 [History] Past Medical History HEENT History: Reports: Allergic Rhinitis, Impaired Vision Cardiovascular History: Reports: Bypass, High Cholesterol, Hypertension Gastrointestinal History: Reports: None Genitourinary History: Reports: Urinary Incontinence, UTI, Recurrent FULL TIME PARAMEDIC History: 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 Social & Family History - Family History Family Medical History: Noncontributory - Caffeine Use Caffeine Use: Reports: Coffee - Living Situation & Occupation Living situation: Reports: , with Spouse, with Family Occupation: Retired ED ROS GENERAL - Review of Systems Review Of Systems: See Below Constitutional: Reports: Weakness. Denies: Fever, Chills HEENT: Reports: No Symptoms Respiratory: Reports: No Symptoms. Denies: Shortness of Breath Cardiovascular: Reports: Syncope. Denies: Chest Pain, Dyspnea on Exertion, Edema, Orthopnea, Palpitations Endocrine: Reports: No Symptoms GI/Abdominal: Reports: Nausea. Denies: Abdominal Pain, Melena, Vomiting : Reports: No Symptoms Musculoskeletal: Reports: No Symptoms. Denies: Neck Pain, Back Pain Skin: Reports: No Symptoms. Denies: Bruising, Rash, Erythema Neurological: Reports: No Symptoms. Denies: Confusion, Dizziness, Headache, Seizure, Trouble Speaking, Difficulty Walking, Change in Speech, Gait Disturbance Psychiatric: Reports: No Symptoms - Physical Exam Exam: See Below Exam Limited By: No Limitations General Appearance: Alert, WD/WN, No Apparent Distress Ears: Normal External Exam Nose: Normal Inspection, Normal Mucosa Throat/Mouth: Normal Inspection, Normal Lips, Normal Voice, No Airway Compromise Head Exam: Atraumatic, Normocephalic Neck: Normal Inspection, Supple, Non-Tender, Full Range of Motion Respiratory/Chest: No Respiratory Distress, Lungs Clear, Normal Breath Sounds Cardiovascular: Normal Peripheral Pulses, Systolic Murmur, Irregularly Irregular. No: No Murmur GI/Abdominal: Soft, Non-Tender Neuro Exam (Abbreviated): Alert, Oriented, Normal Cognition, Normal Gait, No Motor/Sensory Deficits Back Exam: Normal Inspection, Full Range of Motion Extremities: Normal Inspection, Normal Range of Motion, Non-Tender, No Pedal Edema, Normal Capillary Refill Psychiatric: Normal Affect, Normal Mood Skin Exam: Warm, Dry, Intact, Normal Color EKG INTERPRETATION EKG Date: 10/07/19 Time: 13:32 Rhythm: A-Fib Rate (Beats/Min): 79 [place]: LAD-Left [place] Deviation QRS: Normal ST-T: Normal EKG Interpretation Comments: Afib with a controlled ventricular response, no ischemia or injury Course - Vital Signs Last Recorded V/S: Last Vital Signs Temp 35.2 C L 10/07/19 13:21 Pulse 78 10/07/19 13:21 Resp BP 151/56 H 10/07/19 13:21 Pulse Ox 100 10/07/19 13:21 - Orders/Labs/Meds Orders: Active Orders 24 hr Category Date Time Status Chest 2V [CR] Stat Exams 10/07/19 13:35 Ordered EKG 12 Lead [EK] Routine Ther 10/07/19 13:35 Ordered Labs: Laboratory Tests 10/07/19 10/07/19 10/07/19 Range/Units 13:36 14:04 14:04 WBC 9.2 (5.0-10.0) 10^3/uL RBC 4.03 (4.00-5.50) 10^6/uL Hgb 12.0 (12.0-16.0) g/dL Hct 36.0 L (37.0-47.0) % MCV 89.3 (82.0-94.0) fL MCH 29.8 (27.0-32.0) pg MCHC 33.3 (33.0-38.0) g/dL RDW Coeff of [place] 14.3 (11.0-15.0) % Plt Count 217 (150-400) 10^3/uL Neut % (Auto) 80.3 (35-85) % Lymph % (Auto) 10.9 (10-55) % [place] % (Auto) 7.4 (0-16) % Eos % (Auto) 1.0 (0-5) % Baso % (Auto) 0.4 (0-3) % Neut # (Auto) 7.38 H (1.80-7.00) 10^3/uL Lymph # (Auto) 1.00 (1.00-4.80) 10^3/uL [place] # (Auto) 0.68 (0.00-0.80) 10^3/uL Eos # (Auto) 0.09 (0.00-0.45) 10^3/uL Baso # (Auto) 0.04 10^3/uL PT 11.8 (9.7-12.3) SEC INR 1.16 (0.92-1.18) APTT 30.3 (23.2-32.3) SEC Sodium (136-145) mEq/L Potassium (3.5-5.0) mEq/L Chloride (98-106) mEq/L Carbon Dioxide (21-32) mmol/L BUN (7-18) mg/dL Creatinine (0.6-1.0) mg/dL Est Cr Clr Drug Dosing mL/min Estimated GFR (MDRD) (>=60) mL/min Glucose (75-99) mg/dL Calcium (8.4-10.1) mg/dL Total Bilirubin (0.0-1.0) mg/dL AST (15-37) U/L ALT (12-78) U/L Alkaline Phosphatase (46-116) U/L Troponin I (0.00-0.06) ng/mL NT-Pro-B Natriuret Pep (0-1000) pg/mL Total Protein (6.4-8.2) g/dL Albumin (3.4-5.0) g/dL Urine Color Yellow (YELLOW) Urine Appearance Clear (CLEAR) Urine pH 7.0 (4.5-8.0) Ur Specific [place] 1.010 (1.003-1.020) Urine Protein Negative (NEGATIVE) mg/dL Urine Glucose (UA) 250 H (NEGATIVE) mg/dL Urine Ketones Negative (NEGATIVE) mg/dL Urine Occult Blood Negative (NEGATIVE) Urine Nitrite Negative (NEGATIVE) Urine Bilirubin Negative (NEGATIVE) Urine Urobilinogen 0.2 (0.2-1.0) EU/dL Ur Leukocyte Esterase Negative (NEGATIVE) 10/07/19 Range/Units 14:04 WBC (5.0-10.0) 10^3/uL RBC (4.00-5.50) 10^6/uL Hgb (12.0-16.0) g/dL Hct (37.0-47.0) % MCV (82.0-94.0) fL MCH (27.0-32.0) pg MCHC (33.0-38.0) g/dL RDW Coeff of [place] (11.0-15.0) % Plt Count (150-400) 10^3/uL Neut % (Auto) (35-85) % Lymph % (Auto) (10-55) % [place] % (Auto) (0-16) % Eos % (Auto) (0-5) % Baso % (Auto) (0-3) % Neut # (Auto) (1.80-7.00) 10^3/uL Lymph # (Auto) (1.00-4.80) 10^3/uL [place] # (Auto) (0.00-0.80) 10^3/uL Eos # (Auto) (0.00-0.45) 10^3/uL Baso # (Auto) 10^3/uL PT (9.7-12.3) SEC INR (0.92-1.18) APTT (23.2-32.3) SEC Sodium 137 (136-145) mEq/L Potassium 4.2 (3.5-5.0) mEq/L Chloride 99 (98-106) mEq/L Carbon Dioxide 26 (21-32) mmol/L BUN 48 H (7-18) mg/dL Creatinine 1.5 H (0.6-1.0) mg/dL Est Cr Clr Drug Dosing 24.45 mL/min Estimated GFR (MDRD) 34 L (>=60) mL/min Glucose 284 H D (75-99) mg/dL Calcium 9.4 (8.4-10.1) mg/dL Total Bilirubin 0.4 (0.0-1.0) mg/dL AST 19 (15-37) U/L ALT 14 (12-78) U/L Alkaline Phosphatase 85 (46-116) U/L Troponin I < 0.017 (0.00-0.06) ng/mL NT-Pro-B Natriuret Pep 2889 H (0-1000) pg/mL Total Protein 7.9 (6.4-8.2) g/dL Albumin 3.3 L (3.4-5.0) g/dL Urine Color (YELLOW) Urine Appearance (CLEAR) Urine pH (4.5-8.0) Ur Specific [place] (1.003-1.020) Urine Protein (NEGATIVE) mg/dL Urine Glucose (UA) (NEGATIVE) mg/dL Urine Ketones (NEGATIVE) mg/dL Urine Occult Blood (NEGATIVE) Urine Nitrite (NEGATIVE) Urine Bilirubin (NEGATIVE) Urine Urobilinogen (0.2-1.0) EU/dL Ur Leukocyte Esterase (NEGATIVE) Departure - Departure Time of Disposition: 14:37 Disposition: Admitted As Inpatient 67 Condition: Good Clinical Impression: Near syncope, Renal insufficiency - Discharge Information *PRESCRIPTION DRUG MONITORING PROGRAM REVIEWED*: Not Applicable *COPY OF PRESCRIPTION DRUG MONITORING REPORT IN PATIENT JAMIE: Not Applicable Forms: ED Department Discharge - Problem List & Annotations (1) Near syncope SNOMED Code(s): 656008745 Code(s): R55 - SYNCOPE AND COLLAPSE Status: Acute Priority: High Current Visit: No (2) Renal insufficiency SNOMED Code(s): 101361093, 484003152 Code(s): N28.9 - DISORDER OF KIDNEY AND URETER, UNSPECIFIED Status: Acute Priority: Medium Current Visit: Yes - Problem List Review Problem List Initiated/Reviewed/Updated: Yes - My Orders Last 24 Hours: My Active Orders 10/07/19 13:35 Chest 2V [CR] Stat EKG 12 Lead [EK] Routine - Assessment/Plan Admission H&P: Please use this note as an admission H&P Last 24 Hours: My Active Orders 10/07/19 13:35 Chest 2V [CR] Stat EKG 12 Lead [EK] Routine Plan: will admit and do CE, will review cxr when completed, will make changes as needed
[2019-10-07 14:31] LABS: CHLORIDE,CL 99 mEq/L (98-106); SODIUM,NA 137 mEq/L (136-145)
[2019-10-07] MEDS ORDERED: Sodium Chloride 0.9% 10 ML Syringe FLUSH PRN (14:39)
[2019-10-07] MEDS ORDERED: Non-Formulary Medication 1 Each (Insulin Aspart [Novolog] 10 UNIT) SUBCUT SCH (17:30)
[2019-10-07] MEDS ORDERED: Torsemide 20 MG Tab PO SCH (20:00)
[2019-10-07] MEDS: Apixaban 5 MG Tab PO SCH (20:42)
[2019-10-08] MEDS ORDERED: Non-Formulary Medication 1 Each (Magnesium Oxide [Magnesium Oxide] 500 MG) PO SCH (08:00)
[2019-10-08] MEDS ORDERED: Allopurinol 100 MG Tab PO SCH (08:00)
[2019-10-08] MEDS ORDERED: Insulin Lispro 100 Units/ML 3 ML Vial SUBCUT SCH (08:00)
[2019-10-08] MEDS ORDERED: Non-Formulary Medication 1 Each (Rosuvastatin Calcium [Rosuvastatin Calcium] 20 MG) PO SCH (08:00)
[2019-10-08] MEDS ORDERED: Torsemide 20 MG Tab PO SCH (08:00)
[2019-10-08] MEDS ORDERED: Insulin Glargine,Human Rec. Analog 100 Units/ML 3 ML Pen SUBCUT SCH (08:00)
[2019-10-08] MEDS ORDERED: ESTRADIOL 0.5 MG PO SCH (08:00)
[2019-10-08] MEDS ORDERED: INSULIN DETEMIR 27 UNIT SUBCUT SCH (08:00)
[2019-10-08] MEDS ORDERED: Non-Formulary Medication 1 Each (Ubidecarenone [Co Q-10] 100 MG) PO SCH (08:00)
[2019-10-08] MEDS: Apixaban 5 MG Tab PO SCH (08:27)
[2019-10-08 09:02] VITALS: BP 134/60; PULSE 71
--- NOTE | 2019-10-08 09:24 | PCM.DCSUM1 ---
Discharge Summary - Hospital Course Free Text/Narrative:: pt advised she is feeling better, she has not had any more episode of feeling like she is going to pass out, CE neg, EKG is unchanged HPI Initial Comments: feeling like she was going to pass out Diagnosis: Stroke: No - Discharge Data Discharge Date: 10/08/19 Discharge Disposition: Home, Self-Care 01 Condition: Good - Referral to Home Health Primary Care Physician: Cholo Rico MD - Discharge Diagnosis/Problem(s) (1) Near syncope SNOMED Code(s): 510476965 ICD Code: R55 - SYNCOPE AND COLLAPSE Status: Acute Priority: High Current Visit: No (2) Renal insufficiency SNOMED Code(s): 997475188, 122066637 ICD Code: N28.9 - DISORDER OF KIDNEY AND URETER, UNSPECIFIED Status: Acute Priority: Medium Current Visit: Yes - Patient Instructions Diet: Heart Healthy Diet Activity: As Tolerated Driving: Do Not Drive Showering/Bathing: May Shower - Discharge Plan *PRESCRIPTION DRUG MONITORING PROGRAM REVIEWED*: Not Applicable *COPY OF PRESCRIPTION DRUG MONITORING REPORT IN PATIENT JAMIE: Not Applicable Home Medications: Home Meds Cholecalciferol (Vitamin D3) [Vitamin D3] 5,000 unit PO BEDTIME 11/01/13 [ History] Magnesium Oxide 500 mg PO DAILY 11/01/13 [History] Ubidecarenone [Co Q-10] 100 mg PO DAILY 11/01/13 [History] Allopurinol 100 mg PO DAILY 08/29/14 [History] Liraglutide [Victoza] 1.8 mg SUBCUT DAILY 08/20/16 [History] Ascorbic Acid [Vitamin C] 500 mg PO DAILY 04/03/17 [History] Insulin Aspart [NovoLOG] 10 unit SUBCUT TIDMEALS #5 pen 04/16/17 [Rx] Estradiol [Yuvafem] 0.5 mg PO DAILY 04/07/18 [History] Biotin 10,000 mcg PO DAILY 04/27/19 [History] Cranberry 500 mg PO DAILY 04/27/19 [History] Rosuvastatin Calcium 20 mg PO DAILY 04/27/19 [History] Torsemide 20 mg PO DAILY 04/27/19 [History] Apixaban [Eliquis] 5 mg PO BID 08/13/19 [History] Insulin Detemir [Levemir] 27 unit SUBCUT DAILY 08/13/19 [History] Oxygen Therapy Mode: Room Air Forms: ED Department Discharge Referrals: Cholo Rico MD [Primary Care Provider] - - Discharge Summary/Plan Comment DC Time >30 min.: No - General Info Date of Service: 10/08/19 - Review of Systems General: Reports: No Symptoms. Denies: Fever, Weakness HEENT: Reports: No Symptoms Pulmonary: Reports: No Symptoms. Denies: Shortness of Breath Cardiovascular: Reports: No Symptoms. Denies: Chest Pain, Palpitations, Lightheadedness Gastrointestinal: Reports: No Symptoms. Denies: Nausea, Vomiting Musculoskeletal: Reports: No Symptoms Skin: Reports: No Symptoms Neurological: Reports: No Symptoms. Denies: Dizziness, Headache Psychiatric: Reports: No Symptoms - Patient Data Vitals - Most Recent: Last Vital Signs Temp 36.6 C 10/08/19 08:00 Pulse 71 10/08/19 08:00 Resp 18 10/08/19 08:00 BP 134/60 10/08/19 08:00 Pulse Ox 98 10/08/19 08:00 Weight - Most Recent: 77.927 kg Lab Results - Last 24 hrs: Laboratory Results - last 24 hr 10/07/19 10/07/19 10/07/19 Range/Units 13:36 14:04 14:04 WBC 9.2 (5.0-10.0) 10^3/uL RBC 4.03 (4.00-5.50) 10^6/uL Hgb 12.0 (12.0-16.0) g/dL Hct 36.0 L (37.0-47.0) % MCV 89.3 (82.0-94.0) fL MCH 29.8 (27.0-32.0) pg MCHC 33.3 (33.0-38.0) g/dL RDW Coeff of [place] 14.3 (11.0-15.0) % Plt Count 217 (150-400) 10^3/uL Neut % (Auto) 80.3 (35-85) % Lymph % (Auto) 10.9 (10-55) % [place] % (Auto) 7.4 (0-16) % Eos % (Auto) 1.0 (0-5) % Baso % (Auto) 0.4 (0-3) % Neut # (Auto) 7.38 H (1.80-7.00) 10^3/uL Lymph # (Auto) 1.00 (1.00-4.80) 10^3/uL [place] # (Auto) 0.68 (0.00-0.80) 10^3/uL Eos # (Auto) 0.09 (0.00-0.45) 10^3/uL Baso # (Auto) 0.04 10^3/uL PT 11.8 (9.7-12.3) SEC INR 1.16 (0.92-1.18) APTT 30.3 (23.2-32.3) SEC Sodium (136-145) mEq/L Potassium (3.5-5.0) mEq/L Chloride (98-106) mEq/L Carbon Dioxide (21-32) mmol/L BUN (7-18) mg/dL Creatinine (0.6-1.0) mg/dL Est Cr Clr Drug Dosing mL/min Estimated GFR (MDRD) (>=60) mL/min Glucose (75-99) mg/dL POC Glucose (75-105) mg/dl Calcium (8.4-10.1) mg/dL Total Bilirubin (0.0-1.0) mg/dL AST (15-37) U/L ALT (12-78) U/L Alkaline Phosphatase (46-116) U/L Troponin I (0.00-0.06) ng/mL NT-Pro-B Natriuret Pep (0-1000) pg/mL Total Protein (6.4-8.2) g/dL Albumin (3.4-5.0) g/dL Urine Color Yellow (YELLOW) Urine Appearance Clear (CLEAR) Urine pH 7.0 (4.5-8.0) Ur Specific [place] 1.010 (1.003-1.020) Urine Protein Negative (NEGATIVE) mg/dL Urine Glucose (UA) 250 H (NEGATIVE) mg/dL Urine Ketones Negative (NEGATIVE) mg/dL Urine Occult Blood Negative (NEGATIVE) Urine Nitrite Negative (NEGATIVE) Urine Bilirubin Negative (NEGATIVE) Urine Urobilinogen 0.2 (0.2-1.0) EU/dL Ur Leukocyte Esterase Negative (NEGATIVE) 10/07/19 10/07/19 10/08/19 Range/Units 14:04 17:25 07:30 WBC (5.0-10.0) 10^3/uL RBC (4.00-5.50) 10^6/uL Hgb (12.0-16.0) g/dL Hct (37.0-47.0) % MCV (82.0-94.0) fL MCH (27.0-32.0) pg MCHC (33.0-38.0) g/dL RDW Coeff of [place] (11.0-15.0) % Plt Count (150-400) 10^3/uL Neut % (Auto) (35-85) % Lymph % (Auto) (10-55) % [place] % (Auto) (0-16) % Eos % (Auto) (0-5) % Baso % (Auto) (0-3) % Neut # (Auto) (1.80-7.00) 10^3/uL Lymph # (Auto) (1.00-4.80) 10^3/uL [place] # (Auto) (0.00-0.80) 10^3/uL Eos # (Auto) (0.00-0.45) 10^3/uL Baso # (Auto) 10^3/uL PT (9.7-12.3) SEC INR (0.92-1.18) APTT (23.2-32.3) SEC Sodium 137 (136-145) mEq/L Potassium 4.2 (3.5-5.0) mEq/L Chloride 99 (98-106) mEq/L Carbon Dioxide 26 (21-32) mmol/L BUN 48 H (7-18) mg/dL Creatinine 1.5 H (0.6-1.0) mg/dL Est Cr Clr Drug Dosing 24.45 mL/min Estimated GFR (MDRD) 34 L (>=60) mL/min Glucose 284 H D (75-99) mg/dL POC Glucose 311 H (75-105) mg/dl Calcium 9.4 (8.4-10.1) mg/dL Total Bilirubin 0.4 (0.0-1.0) mg/dL AST 19 (15-37) U/L ALT 14 (12-78) U/L Alkaline Phosphatase 85 (46-116) U/L Troponin I < 0.017 < 0.017 (0.00-0.06) ng/mL NT-Pro-B Natriuret Pep 2889 H (0-1000) pg/mL Total Protein 7.9 (6.4-8.2) g/dL Albumin 3.3 L (3.4-5.0) g/dL Urine Color (YELLOW) Urine Appearance (CLEAR) Urine pH (4.5-8.0) Ur Specific [place] (1.003-1.020) Urine Protein (NEGATIVE) mg/dL Urine Glucose (UA) (NEGATIVE) mg/dL Urine Ketones (NEGATIVE) mg/dL Urine Occult Blood (NEGATIVE) Urine Nitrite (NEGATIVE) Urine Bilirubin (NEGATIVE) Urine Urobilinogen (0.2-1.0) EU/dL Ur Leukocyte Esterase (NEGATIVE) Med Orders - Current: Current Medications Allopurinol (Zyloprim) 100 mg PO DAILY [facility] Last Admin: 10/08/19 08:27 Dose: 100 mg Apixaban (Eliquis) 5 mg PO BID [facility] Last Admin: 10/08/19 08:27 Dose: 5 mg Insulin Glargine (Lantus Solostar) 27 units SUBCUT DAILY [facility] Last Admin: 10/08/19 08:23 Dose: 27 units Insulin Human Lispro (Humalog) 10 unit SUBCUT TIDMEALS [facility] Last Admin: 10/08/19 08:21 Dose: 10 units Non-Formulary Medication (Estradiol [Yuvafem]) 0.5 mg PO DAILY [facility] Last Admin: 10/08/19 08:27 Dose: 0.5 mg Non-Formulary Medication (Magnesium Oxide [Magnesium Oxide]) 500 mg PO DAILY [facility] Last Admin: 10/08/19 08:28 Dose: 500 mg Non-Formulary Medication (Rosuvastatin Calcium [Rosuvastatin Calcium]) 20 mg PO DAILY [facility] Last Admin: 10/08/19 08:28 Dose: Not Given Non-Formulary Medication (Ubidecarenone [Co Q-10]) 100 mg PO DAILY [facility] Last Admin: 10/08/19 08:29 Dose: Not Given Sodium Chloride (Saline Flush) 10 ml FLUSH ASDIRECTED PRN PRN Reason: Keep Vein Open Torsemide (Demadex) 20 mg PO DAILY [facility] Last Admin: 10/08/19 08:27 Dose: 20 mg Discontinued Medications Non-Formulary Medication (Insulin Aspart [Novolog]) 10 unit SUBCUT TIDMEALS [facility] Last Admin: 10/07/19 18:49 Dose: Not Given Non-Formulary Medication (Insulin Detemir [Levemir]) 27 unit SUBCUT DAILY [facility] Torsemide (Demadex) 20 mg PO BID ISAIAH - Exam General: Reports: Alert, Cooperative, No Acute Distress HEENT: Reports: Pupils Equal Neck: Reports: Supple, Trachea Midline Lungs: Reports: Clear to Auscultation, Normal Respiratory Effort Cardiovascular: Reports: Irregular Rhythm GI/Abdominal Exam: Soft, Non-Tender Back Exam: Reports: Normal Inspection, Full Range of Motion Extremities: Normal Inspection, Normal Range of Motion, Non-Tender, No Pedal Edema, Normal Capillary Refill Skin: Reports: Warm, Dry, Intact Neurological: Reports: No New Focal Deficit Psy/Mental Status: Reports: Alert, Normal Affect, Normal Mood EKG INTERPRETATION EKG Date: 10/08/19 Time: 08:13 Rhythm: Other (Afib) Rate (Beats/Min): 57 [place]: LAD-Left [place] Deviation QRS: Normal ST-T: Normal Comparison: No Change EKG Interpretation Comments: A-Fib with a SVR *Q Meaningful Use (DIS) - VTE *Q VTE Anticoagulation Contraindications: Medical/Procedure Contrai
== END 2019-10-08 09:25 | disposition home or self-care (01) ==
LOC: CC.ED 13:20 → CC.MS 14:39 → UNDOADMOB 14:40 → UNDODISOB 10-08 09:25
PROVIDERS: ADMIT Nurse Practitioner; ATTEND Nurse Practitioner
DX: R55 Syncope and collapse (principal); N28.9 Disorder of kidney and ureter, unspecified; E78.00 Pure hypercholesterolemia, unspecified; I10 Essential (primary) hypertension; E11.9 Type 2 diabetes mellitus without complications; I25.10 Atherosclerotic heart disease of native coronary artery without angina pectoris; Z79.01 Long term (current) use of anticoagulants; Z79.4 Long term (current) use of insulin; Z88.8 Allergy status to other drugs, medicaments and biological substances; Z79.899 Other long term (current) drug therapy; Z95.1 Presence of aortocoronary bypass graft
CPT/HCPCS: 36415; 71046; 80053; 81003; 82962; 83880; 84484; 85025; 85610; 85730; 93005; 99217; 99220; 99285-25; A9270-GY; G0378; J1815; J1815-GY

== ENCOUNTER → 2020-03-01 | Day surgery (SDC) | payer MEDICARE, BC ==
[~2020-03-01] MED LIST changes: +Lactated Ringers 1,000 ML IV SCH; +Propofol 200 MG/20 ML SDV IV ONE; -Sulfamethoxazole/Trimethoprim 800-160 MG Tab PO ONE
[2020-03-01] MEDS: Lactated Ringers 1,000 ML IV SCH (08:26)
[2020-03-01 12:20] VITALS: BP 123/42; PULSE 77
--- NOTE | 2020-03-01 15:45 | OR ---
DATE OF OPERATION: PREOPERATIVE DIAGNOSIS: 1. HISTORY OF POLYPS. 2. FAMILY HISTORY OF COLON CARCINOMA. POSTOPERATIVE DIAGNOSIS: 1. HISTORY OF POLYPS. 2. FAMILY HISTORY OF COLON CARCINOMA. SURGEON: Fuentes Crawford MD PROCEDURE: DIAGNOSTIC COLONOSCOPY WITH POLYP REMOVAL X2. ANESTHESIA: MAC. COMPLICATIONS: None. SPECIMEN: Two small tubular adenomas, left colon, each 5 mm or less. FINDINGS: 1. Full-length colonoscopy. 2. Tubular adenomas x2, splenic flexure, mid sigmoid colon, each approximately 5 mm. RECOMMENDATIONS: Followup colonoscopy in 5 years. INDICATIONS: The patient has a family history of colon cancer. She had multiple scopes with polyps removed in the past. She is due for a surveillance exam. DESCRIPTION OF PROCEDURE: The patient was prepped and draped, placed in the left lateral decubitus position. A lubricated Olympus colonoscope was inserted and easily advanced to the cecum. Direct visualization of ileocecal valve and appendiceal orifice was accomplished. The bowel prep was adequate. Upon withdrawal of the scope, right and transverse colon appeared unremarkable. In the distal transverse, right at the splenic flexure, the patient had a small sessile polyp approximately 4 mm in size, removed in its entirety with forceps. The rest of the descending colon was unremarkable. At around 35 to 40 cm, the patient had a small stalked tubular adenoma, approximately 5 mm in size, removed with a snare and suctioned into polyp trap #1. The rest of the sigmoid and rectosigmoid junction looked benign. The rectal vault was unremarkable. Retroflexion showed no perianal lesions other than some skin tags. Air was suctioned. Scope removed without complication. GHULAM/TEREZA /[id number]
== END ==
LOC: CC.SDS 08:03
PROVIDERS: ATTEND Family Medicine
DX: D12.5 Benign neoplasm of sigmoid colon (principal); E11.9 Type 2 diabetes mellitus without complications; I10 Essential (primary) hypertension; E78.5 Hyperlipidemia, unspecified; I34.0 Nonrheumatic mitral (valve) insufficiency; M19.90 Unspecified osteoarthritis, unspecified site; R53.83 Other fatigue; R35.1 Nocturia; K21.9 Gastro-esophageal reflux disease without esophagitis; Z79.899 Other long term (current) drug therapy; Z91.011 Allergy to milk products; Z91.018 Allergy to other foods; Z79.4 Long term (current) use of insulin; Z80.0 Family history of malignant neoplasm of digestive organs; Z86.010 Personal history of colon polyps
CPT/HCPCS: 00812; 45385; 88305; J2704; J7120

== ENCOUNTER 2020-03-09 10:14 | Emergency (ER) | payer MEDICARE, BC ==
[2020-03-09] MEDS ORDERED: Cephalexin 500 MG Cap PO ONE (10:15)
[2020-03-09] MEDS ORDERED: Phenazopyridine 95 MG Tab PO ONE (10:15)
[2020-03-09] MEDS ORDERED: Take Home: Cephalexin 500 MG Cap, 4 Cap Pack PO ONE (10:28)
--- NOTE | 2020-03-09 10:28 | EDM.PDOC ---
ED HPI GENERAL MEDICAL PROBLEM - General Chief Complaint: General Stated Complaint: "Urinating alot" Time Seen by Provider: 03/09/20 10:14 Source of Information: Reports: Patient History Limitations: Reports: No Limitations - History of Present Illness INITIAL COMMENTS - FREE TEXT/NARRATIVE: Patient to the emergency department complaining of UTI type symptoms for the past 2 days. The patient advises that yesterday she started with frequency urination. The patient denies any pain in her back she denies any flank pain she denies any fever chills she denies any nausea no vomiting. She denies any other symptoms. She does have a history of UTIs Onset: Gradual Duration: Day(s): (2) Location: Reports: Pelvis Quality: Reports: Ache Severity: Mild Improves with: Reports: None Worsens with: Reports: Other (Voiding) Associated Symptoms: Reports: No Other Symptoms. 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 (see below) (none) - Related Data Allergies Allergy/AdvReac Type Severity Reaction Status Date / Time amiloride HCl Allergy Rash Verified 03/01/20 08:25 [From Moduretic] corn Allergy Other Verified 03/01/20 08:25 hydrochlorothiazide Allergy Rash Verified 03/01/20 08:25 [From Moduretic] Milk Containing Products Allergy Other Verified 03/01/20 08:25 wheat Allergy Other Verified 03/01/20 08:25 Home Meds: Home Meds Cholecalciferol (Vitamin D3) [Vitamin D3] 5,000 unit PO BEDTIME 11/01/13 [ History] Magnesium Oxide 500 mg PO DAILY 11/01/13 [History] Ubidecarenone [Co Q-10] 100 mg PO DAILY 11/01/13 [History] allopurinoL [Allopurinol] 100 mg PO DAILY 08/29/14 [History] Liraglutide [Victoza] 1.8 mg SUBCUT DAILY 08/20/16 [History] Ascorbic Acid [Vitamin C] 500 mg PO DAILY 04/03/17 [History] estradioL [Yuvafem] 0.5 mg PO DAILY 04/07/18 [History] Cranberry 500 mg PO DAILY 04/27/19 [History] Rosuvastatin Calcium 20 mg PO DAILY 04/27/19 [History] Torsemide 20 mg PO DAILY 04/27/19 [History] Apixaban [Eliquis] 5 mg PO BID 08/13/19 [History] Insulin Detemir [Levemir] 20 - 30 unit SUBCUT DAILY 08/13/19 [History] Insulin Aspart [NovoLOG] 20 unit SUBCUT TIDMEALS PRN 02/12/20 [History] Omeprazole 40 mg PO DAILY 03/01/20 [History] Zinc 50 mg PO DAILY 03/01/20 [History] cephALEXin [Keflex] 500 mg PO Q8H 8 Days #24 cap 03/09/20 [Rx] Past Medical History HEENT History: Reports: Allergic Rhinitis, Impaired Vision Cardiovascular History: Reports: Bypass, High Cholesterol, Hypertension Gastrointestinal History: Reports: None Genitourinary History: Reports: Urinary Incontinence, UTI, 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 History: Reports: Musculoskeletal History: Reports: None Psychiatric History: Reports: None Endocrine/Metabolic History: Reports: Diabetes, Type II Hematologic History: Reports: Blood Transfusion(s) Immunologic History: Reports: None - Infectious Disease History Infectious Disease History: Reports: None - Past Surgical History HEENT Surgical History: 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 Social & Family History - Family History Family Medical History: Noncontributory - Caffeine Use Caffeine Use: Reports: Coffee - Living Situation & Occupation Living situation: Reports: , with Spouse, with Family Occupation: Retired ED ROS GENERAL - Review of Systems Review Of Systems: See Below Constitutional: Denies: Fever, Chills, Weakness HEENT: Reports: No Symptoms Respiratory: Reports: No Symptoms Cardiovascular: Reports: No Symptoms GI/Abdominal: Reports: No Symptoms. Denies: Abdominal Pain, Nausea, Vomiting : Reports: Frequency, Urgency. Denies: Discharge, Dysuria, Flank Pain, Hematuria, Urinary Retention Musculoskeletal: Reports: No Symptoms. Denies: Neck Pain, Back Pain Skin: Reports: No Symptoms. Denies: Rash, Erythema Neurological: Reports: No Symptoms Psychiatric: Reports: No Symptoms ED EXAM, GENERAL - Physical Exam Exam: See Below Exam Limited By: No Limitations General Appearance: Alert, WD/WN, No Apparent Distress Respiratory/Chest: No Respiratory Distress, Lungs Clear, Normal Breath Sounds, Chest Non-Tender Cardiovascular: Normal Peripheral Pulses, Regular Rate, Rhythm, No Murmur Peripheral Pulses: 2+: Radial (L) GI/Abdominal: Normal Bowel Sounds, Soft, Non-Tender, No Distention Back Exam: Normal Inspection, Full Range of Motion. No: CVA Tenderness (L), CVA Tenderness (R) Extremities: Normal Inspection, Normal Range of Motion, Non-Tender, Normal Capillary Refill Neurological: Alert, Oriented, Normal Cognition, Normal Gait, No Motor/Sensory Deficits Psychiatric: Normal Affect, Normal Mood Skin Exam: Warm, Dry, Intact, Normal Color Course - Vital Signs Text/Narrative:: The patient was evaluated in the emergency department, it appears as if she has a urinary tract infection. The patient will be started on Keflex 500 mg 3 times daily for 10 days she will also be given Pyridium 100 mg 3 times daily for 2 days should be advised to increase her fluids she body advised to follow- up with her family doctor and 7 to 10 days to recheck her urine she is to return to emergency department sooner if worse or any problems - Orders/Labs/Meds Orders: Active Orders 24 hr Category Date Time Status UA W/ELPIDIO RFLX IF INDICATED [URIN] Stat Lab 03/09/20 10:20 Ordered Departure - Departure Time of Disposition: 10:26 Disposition: Home, Self-Care 01 Condition: Good Clinical Impression: Urinary tract infection - Discharge Information *PRESCRIPTION DRUG MONITORING PROGRAM REVIEWED*: Not Applicable *COPY OF PRESCRIPTION DRUG MONITORING REPORT IN PATIENT JAMIE: Not Applicable Prescriptions: cephALEXin [Keflex] 500 mg PO Q8H 8 Days #24 cap Referrals: Corina Urban RN [Primary Care Provider] - - Problem List & Annotations (1) Urinary tract infection SNOMED Code(s): 17773487 Code(s): N39.0 - URINARY TRACT INFECTION, SITE NOT SPECIFIED Status: Acute Priority: Medium Qualifiers: Urinary tract infection type: site unspecified - Problem List Review Problem List Initiated/Reviewed/Updated: Yes - My Orders Last 24 Hours: My Active Orders 03/09/20 10:20 UA W/ELPIDIO RFLX IF INDICATED [URIN] Stat - Assessment/Plan Last 24 Hours: My Active Orders 03/09/20 10:20 UA W/ELPIDIO RFLX IF INDICATED [URIN] Stat Plan: as above
[2020-03-09] MEDS ORDERED: Take Home: Phenazopyridine 95 MG Tab, 4 Tab Pack ONE (10:30)
[2020-03-09 10:32] VITALS: BP 147/71; PULSE 86
== END 2020-03-09 10:50 | disposition home or self-care (01) ==
LOC: CC.ED 10:14
DX: N39.0 Urinary tract infection, site not specified (principal); I10 Essential (primary) hypertension; E11.9 Type 2 diabetes mellitus without complications; E78.00 Pure hypercholesterolemia, unspecified; Z90.49 Acquired absence of other specified parts of digestive tract; Z91.018 Allergy to other foods; Z91.011 Allergy to milk products; Z88.8 Allergy status to other drugs, medicaments and biological substances; Z79.899 Other long term (current) drug therapy; Z79.01 Long term (current) use of anticoagulants; Z79.4 Long term (current) use of insulin
CPT/HCPCS: 81001; 87086; 99283; A9270-GY

== ENCOUNTER 2020-05-11 09:32 | Emergency (ER) | payer MEDICARE, BC ==
[2020-05-11] MEDS ORDERED: Morphine 4 MG/ML VIAL IVPUSH ONE (09:41)
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
[2020-05-11 09:50] LABS: CHLORIDE,CL 99 mEq/L (98-106); SODIUM,NA 135 mEq/L (136-145)
[2020-05-11 11:52] VITALS: BP 154/75; PULSE 67
== END 2020-05-11 11:28 ==
LOC: CC.ED 09:32
DX: S72.112A Displaced fracture of greater trochanter of left femur, initial encounter for closed fracture (principal); E78.00 Pure hypercholesterolemia, unspecified; I10 Essential (primary) hypertension; E11.9 Type 2 diabetes mellitus without complications; I48.91 Unspecified atrial fibrillation; Z79.4 Long term (current) use of insulin; Z79.01 Long term (current) use of anticoagulants; Z79.899 Other long term (current) drug therapy; Z88.8 Allergy status to other drugs, medicaments and biological substances; Z91.018 Allergy to other foods; Z91.011 Allergy to milk products; W01.0XXA Fall on same level from slipping, tripping and stumbling without subsequent striking against object, initial encounter
CPT/HCPCS: 36415; 73502; 73552; 80053; 82150; 83605; 85025; 85610; 96374; 99285; J2270; 99284

== ENCOUNTER 2021-03-16 16:26 | Emergency (ER) | payer MEDICARE, BC ==
[2021-03-16 16:31] VITALS: BP 117/64; PULSE 96
--- NOTE | 2021-03-16 17:03 | EDM.PDOC ---
ED HPI GENERAL MEDICAL PROBLEM - General Chief Complaint: General Stated Complaint: abd pain Time Seen by Provider: 03/16/21 16:45 Source of Information: Reports: Patient History Limitations: Reports: No Limitations - History of Present Illness INITIAL COMMENTS - FREE TEXT/NARRATIVE: Corina is an 81 year old female who presents to ER with daughter for concerns of "not feeling well". States had an emesis yesterday, hasn't felt well since. She is noting abdominal discomfort, somewhat generalized but more near the umbilical area. Does have a long standing abdominal hernia but hasn't had any issues with that. Had a normal BM earlier today. No diarrhea. No fevers. Appetite is decreased. Has low back discomfort. patient questions if she has a UTI as has felt this way in the past with those. Denies burning increased frequency or hematuria. No cough, shortness of breath or chest discomfort. No other URI symptoms. Onset: Gradual Duration: Day(s):, Waxing/Waning Location: Reports: Abdomen, Generalized Quality: Reports: Ache Severity: Moderate Associated Symptoms: Reports: Loss of Appetite, Malaise, Nausea/Vomiting. Denies: Confusion, Chest Pain, Cough, Fever/Chills, Shortness of Breath, Weakness Abdominal Pain Score (Numeric/FACES): 6 - Related Data Allergies Allergy/AdvReac Type Severity Reaction Status Date / Time amiloride HCl Allergy Rash Verified 03/16/21 16:27 [From Moduretic] corn Allergy Other Verified 03/16/21 16:27 hydrochlorothiazide Allergy Rash Verified 03/16/21 16:27 [From Moduretic] Milk Containing Products Allergy Other Verified 03/16/21 16:27 wheat Allergy Other Verified 03/16/21 16:27 Home Meds: Home Meds Cholecalciferol (Vitamin D3) [Vitamin D3] 5,000 unit PO BEDTIME 11/01/13 [History] Magnesium Oxide 500 mg PO DAILY 11/01/13 [History] Ubidecarenone [Co Q-10] 100 mg PO DAILY 11/01/13 [History] allopurinoL [Allopurinol] 100 mg PO DAILY 08/29/14 [History] Liraglutide [Victoza] 1.8 mg SUBCUT DAILY 08/20/16 [History] Ascorbic Acid [Vitamin C] 500 mg PO DAILY 04/03/17 [History] estradioL [Yuvafem] 0.5 mg PO DAILY 04/07/18 [History] Cranberry 500 mg PO DAILY 04/27/19 [History] Rosuvastatin Calcium 20 mg PO DAILY 04/27/19 [History] Torsemide 20 mg PO DAILY 04/27/19 [History] Apixaban [Eliquis] 5 mg PO BID 08/13/19 [History] Insulin Detemir [Levemir] 20 - 30 unit SUBCUT DAILY 08/13/19 [History] Insulin Aspart [NovoLOG] 20 unit SUBCUT TIDMEALS PRN 02/12/20 [History] Omeprazole 40 mg PO DAILY 03/01/20 [History] Nitrofurantoin Monohyd/M-Cryst [Macrobid 100 mg Capsule] 1 tab PO DAILY 05/11/20 [History] Levofloxacin [Levaquin] 500 mg PO DAILY #9 tablet 03/16/21 [Rx] Past Medical History HEENT History: Reports: Allergic Rhinitis, Impaired Vision Cardiovascular History: Reports: Bypass, High Cholesterol, Hypertension Gastrointestinal History: Reports: None Genitourinary History: Reports: Urinary Incontinence, UTI, Recurrent Other Genitourinary History: bladder repair 05/07/20- martinez catheter in place at this time [employer] History: Reports: Musculoskeletal History: Reports: None Psychiatric History: Reports: None Endocrine/Metabolic History: Reports: Diabetes, Type II Hematologic History: Reports: Blood Transfusion(s) Immunologic History: Reports: None - Infectious Disease History Infectious Disease History: Reports: None - Past Surgical History HEENT Surgical History: Reports: Detached Retina Cardiovascular Surgical History: Reports: Valve Replacement Respiratory Surgical History: Reports: None GI Surgical History: Reports: Cholecystectomy, Hernia, Abdominal Female Surgical History: Reports: Hysterectomy Other Female Surgeries/Procedures: has a pacemaker. Musculoskeletal Surgical History: Reports: Other (See Below) Other Musculoskeletal Surgeries/Procedures:: Also has 3 plates in her L) leg. Social & Family History - Family History Family Medical History: No Pertinent Family History - Tobacco Use Tobacco Use Status *Q: Never Tobacco User - Caffeine Use Caffeine Use: Reports: Coffee - Recreational Drug Use Recreational Drug Use: No - Living Situation & Occupation Living situation: Reports: , with Spouse, with Family Occupation: Retired ED ROS GENERAL - Review of Systems Review Of Systems: See Below Constitutional: Reports: Malaise, Weakness, Fatigue. Denies: Fever, Chills HEENT: Denies: Ear Pain, Sinus Problem, Throat Pain, Vertigo Respiratory: Denies: Shortness of Breath, Cough Cardiovascular: Denies: Chest Pain, Edema, Lightheadedness Endocrine: Reports: Fatigue GI/Abdominal: Reports: Abdominal Pain, Nausea, Vomiting. Denies: Constipation, Diarrhea, Hematochezia, Melena : Denies: Dysuria, Frequency Musculoskeletal: Reports: Back Pain Skin: Reports: No Symptoms Neurological: Reports: Weakness ED EXAM, GENERAL - Physical Exam Exam: See Below Exam Limited By: No Limitations General Appearance: Alert, WD/WN, No Apparent Distress Ears: Normal External Exam, Normal TMs Nose: Normal Inspection, Normal Mucosa, No Blood Throat/Mouth: Normal Inspection, Normal Oropharynx, Other (mucous membranes are dry) Head: Normocephalic Neck: Normal Inspection, Supple, Non-Tender Respiratory/Chest: No Respiratory Distress, Lungs Clear, Normal Breath Sounds Cardiovascular: Irregularly Irregular GI/Abdominal: Normal Bowel Sounds, Soft, Tender (bilateral lower quadrants) Extremities: Normal Inspection, No Pedal Edema Neurological: Alert, Oriented Skin Exam: Warm, Dry Course - Vital Signs Last Recorded V/S: Last Vital Signs Temp 97 F 03/16/21 16:28 Pulse 96 03/16/21 16:28 Resp 18 03/16/21 16:28 BP 117/64 03/16/21 16:28 Pulse Ox 99 03/16/21 16:28 - Orders/Labs/Meds Orders: Active Orders 24 hr Category Date Time Status Abdomen 2V AP Flat Upright [CR] Stat Exams 03/16/21 16:39 Ordered CULTURE URINE [RM] Routine Lab 03/16/21 16:58 Received levoFLOXacin [Take Home: Levofloxacin 500 MG, 1 Tab Med 03/16/21 17:21 Once Pack] 1 packet PO ONETIME ONE Labs: Laboratory Tests 03/16/21 03/16/21 03/16/21 Range/Units 16:39 16:39 16:39 WBC 9.4 (5.0-10.0) 10^3/uL RBC 4.41 (4.00-5.50) 10^6/uL Hgb 13.1 (12.0-16.0) g/dL Hct 39.1 (37.0-47.0) % MCV 88.7 (82.0-94.0) fL MCH 29.7 (27.0-32.0) pg MCHC 33.5 (33.0-38.0) g/dL RDW Coeff of [place] 15.3 H (11.0-15.0) % Plt Count 221 (150-400) 10^3/uL Neut % (Auto) 81.3 (35-85) % Lymph % (Auto) 8.1 L (10-55) % [place] % (Auto) 9.5 (0-16) % Eos % (Auto) 0.7 (0-5) % Baso % (Auto) 0.4 (0-3) % Neut # (Auto) 7.67 H (1.80-7.00) 10^3/uL Lymph # (Auto) 0.76 L (1.00-4.80) 10^3/uL [place] # (Auto) 0.90 H (0.00-0.80) 10^3/uL Eos # (Auto) 0.07 (0.00-0.45) 10^3/uL Baso # (Auto) 0.04 10^3/uL Sodium 137 (136-145) mEq/L Potassium 4.0 (3.5-5.0) mEq/L Chloride 96 L (98-106) mEq/L Carbon Dioxide 28 (21-32) mmol/L BUN 30 H (7-18) mg/dL Creatinine 1.7 H (0.6-1.0) mg/dL Est Cr Clr Drug Dosing 20.87 mL/min Estimated GFR (MDRD) 29 L (>=60) mL/min Glucose 53 L D (75-99) mg/dL Calcium 10.1 (8.4-10.1) mg/dL Total Bilirubin 0.4 (0.0-1.0) mg/dL AST 23 (15-37) U/L ALT 11 L (12-78) U/L Alkaline Phosphatase 121 H (46-116) U/L C-Reactive Protein 19.6 H (0.2-0.8) mg/dL Total Protein 8.7 H (6.4-8.2) g/dL Albumin 2.7 L (3.4-5.0) g/dL Urine Color Yellow (YELLOW) Urine Appearance Cloudy (CLEAR) Urine pH 6.5 (4.5-8.0) Ur Specific [place] 1.020 (1.003-1.020) Urine Protein 100 H (NEGATIVE) mg/dL Urine Glucose (UA) Negative (NEGATIVE) mg/dL Urine Ketones Negative (NEGATIVE) mg/dL Urine Occult Blood Trace-intact H (NEGATIVE) Urine Nitrite Negative (NEGATIVE) Urine Bilirubin Negative (NEGATIVE) Urine Urobilinogen 0.2 (0.2-1.0) EU/dL Ur Leukocyte Esterase Large H (NEGATIVE) Urine RBC 5-10 H (0-5) /HPF Urine WBC 75-100 H (0-5) /HPF Urine Bacteria Moderate H (NOT SEEN) /HPF Urinalysis Comment - Re-Assessments/Exams Free Text/Narrative Re-Assessment/Exam: 03/16/21 17:22 Labs reviewed. Urine positive. Will culture. CRP is elevated at 19.6. Blood sugar is low at 53, toast and juice given. will start Levaquin daily. discharge back to [facility] Departure - Departure Time of Disposition: 17:24 Disposition: Home, Self-Care 01 Condition: Fair Clinical Impression: Urinary tract infection Qualifiers: Urinary tract infection type: site unspecified - Discharge Information *PRESCRIPTION DRUG MONITORING PROGRAM REVIEWED*: No *COPY OF PRESCRIPTION DRUG MONITORING REPORT IN PATIENT JAMIE: No Instructions: Urinary Tract Infection, Adult Forms: ED Department Discharge Additional Instructions: 1. Push fluids 2. Continue to monitor blood sugars 3. Levaquin 500 mg daily for 10 days 4. Follow up with Dr. Crawford for any persisting concerns. Sepsis Event Note (ED) - Evaluation Sepsis Screening Result: No Definite Risk - Focused Exam Vital Signs: Vital Signs Temp Pulse Resp BP Pulse Ox 03/16/21 16:28 97 F 96 18 117/64 99 - My Orders Last 24 Hours: My Active Orders 03/16/21 16:39 Abdomen 2V AP Flat Upright [CR] Stat 03/16/21 16:58 CULTURE URINE [RM] Routine 03/16/21 17:21 levoFLOXacin [Take Home: Levofloxacin 500 MG, 1 Tab Pack] 1 packet PO ONETIME ONE - Assessment/Plan Last 24 Hours: My Active Orders 03/16/21 16:39 Abdomen 2V AP Flat Upright [CR] Stat 03/16/21 16:58 CULTURE URINE [RM] Routine 03/16/21 17:21 levoFLOXacin [Take Home: Levofloxacin 500 MG, 1 Tab Pack] 1 packet PO ONETIME ONE
[2021-03-16] MEDS ORDERED: Take Home: Levofloxacin 500 MG Tab, 1 Tab Pack PO ONE (17:21)
== END 2021-03-16 17:49 | disposition home or self-care (01) ==
LOC: CC.ED 16:26
DX: N39.0 Urinary tract infection, site not specified (principal); E78.00 Pure hypercholesterolemia, unspecified; I10 Essential (primary) hypertension; E11.9 Type 2 diabetes mellitus without complications; Z79.4 Long term (current) use of insulin; Z79.899 Other long term (current) drug therapy; Z88.8 Allergy status to other drugs, medicaments and biological substances; Z91.018 Allergy to other foods; Z91.011 Allergy to milk products; Z91.048 Other nonmedicinal substance allergy status
CPT/HCPCS: 36415; 74019; 80053; 81001; 85025; 86140; 87086; 99284; 99284-25; A9270-GY

== ENCOUNTER 2021-06-12 17:26 | Inpatient (IN) | payer MEDICARE, BC ==
[2021-06-12] MEDS ORDERED: 50% Dextrose in Water 50 ML Syringe IVPUSH ONE (17:31)
--- NOTE | 2021-06-12 17:57 | EDM.PDOC ---
ED HPI GENERAL MEDICAL PROBLEM - General Chief Complaint: General Stated Complaint: SOB Time Seen by Provider: 06/12/21 17:40 Source of Information: Reports: Patient, RN History Limitations: Reports: No Limitations - History of Present Illness INITIAL COMMENTS - FREE TEXT/NARRATIVE: Pt brought in by [facility] with low blood sugar and hypoxia. Staff reports that she didn't eat as well for dinner as she normally would and she received all of her insulin. She became less responsive and then her O2 sats dropped and they applied oxygen. daughter relates that she was coughing when they talked to her on the phone earlier today. She also states that they were told that her oxygen was low this AM and they put oxygen on her and they monitored it. She has been more sleepy recently according to family. Onset: Gradual Associated Symptoms: Reports: Weakness Treatments MANIFEST/ORDER ORGANIZER PRINT ORDERS: Reports: Other (see below) Other Treatments MANIFEST/ORDER ORGANIZER PRINT ORDERS: oral glucose per ems - Related Data Allergies Allergy/AdvReac Type Severity Reaction Status Date / Time amiloride HCl Allergy Rash Verified 06/12/21 17:53 [From Moduretic] corn Allergy Other Verified 06/12/21 17:53 hydrochlorothiazide Allergy Rash Verified 06/12/21 17:53 [From Moduretic] Milk Containing Products Allergy Other Verified 06/12/21 17:53 wheat Allergy Other Verified 06/12/21 17:53 Home Meds: Home Meds Cholecalciferol (Vitamin D3) [Vitamin D3] 5,000 unit PO BEDTIME 11/01/13 [History] Magnesium Oxide 500 mg PO DAILY 11/01/13 [History] Ubidecarenone [Co Q-10] 100 mg PO DAILY 11/01/13 [History] allopurinoL [Allopurinol] 100 mg PO DAILY 08/29/14 [History] Liraglutide [Victoza] 1.8 mg SUBCUT DAILY 08/20/16 [History] Ascorbic Acid [Vitamin C] 500 mg PO DAILY 04/03/17 [History] Cranberry 500 mg PO DAILY 04/27/19 [History] Torsemide 20 mg PO DAILY 04/27/19 [History] Apixaban [Eliquis] 5 mg PO BID 08/13/19 [History] Insulin Detemir [Levemir] 16 unit SUBCUT DAILY 08/13/19 [History] Past Medical History HEENT History: Reports: Allergic Rhinitis, Impaired Vision Cardiovascular History: Reports: Bypass, High Cholesterol, Hypertension Gastrointestinal History: Reports: None Genitourinary History: Reports: Urinary Incontinence, UTI, Recurrent Other Genitourinary History: bladder repair 05/07/20- martinez catheter in place at this time [employer] History: Reports: Musculoskeletal History: Reports: None Psychiatric History: Reports: None Endocrine/Metabolic History: Reports: Diabetes, Type II Hematologic History: Reports: Blood Transfusion(s) Immunologic History: Reports: None - Infectious Disease History Infectious Disease History: Reports: None - Past Surgical History HEENT Surgical History: Reports: Detached Retina Cardiovascular Surgical History: Reports: Valve Replacement Respiratory Surgical History: Reports: None GI Surgical History: Reports: Cholecystectomy, Hernia, Abdominal Female Surgical History: Reports: Hysterectomy Other Female Surgeries/Procedures: has a pacemaker. Musculoskeletal Surgical History: Reports: Other (See Below) Other Musculoskeletal Surgeries/Procedures:: Also has 3 plates in her L) leg. Social & Family History - Family History Family Medical History: No Pertinent Family History - Caffeine Use Caffeine Use: Reports: Coffee - Living Situation & Occupation Living situation: Reports: , with Spouse, with Family Occupation: Retired ED ROS GENERAL - Review of Systems Review Of Systems: See Below Constitutional: Reports: Weakness, Fatigue, Decreased Appetite. Denies: Fever, Chills Respiratory: Denies: Shortness of Breath Cardiovascular: Denies: Chest Pain, Edema Endocrine: Reports: Low Glucose GI/Abdominal: Reports: No Symptoms : Reports: No Symptoms Musculoskeletal: Reports: No Symptoms Skin: Reports: No Symptoms Neurological: Reports: Weakness ED EXAM, GENERAL - Physical Exam Exam: See Below Exam Limited By: Other (tired and falling asleep) General Appearance: Alert, WD/WN, No Apparent Distress, Other (falling asleep while eating toast.) Ears: Normal External Exam, Normal Canal, Normal TMs Throat/Mouth: Normal Inspection, Normal Oropharynx, Normal Voice Head: Atraumatic, Normocephalic Neck: Normal Inspection, Supple, Non-Tender, Full Range of Motion Respiratory/Chest: No Respiratory Distress, Rales (bases bilaterally.). No: Respiratory Distress Cardiovascular: Regular Rate, Rhythm, No Edema GI/Abdominal: Normal Bowel Sounds, Soft, Non-Tender Extremities: Normal Inspection, Non-Tender, No Pedal Edema, Normal Capillary Refill Neurological: Alert, Oriented, Normal Cognition (she did recognze and call me by name immediately when talking to her.) Psychiatric: Other (falling asleep) Skin Exam: Warm, Dry, Intact Course - Vital Signs Last Recorded V/S: Last Vital Signs Temp 97.9 F 06/12/21 17:40 Pulse 85 06/12/21 17:40 Resp 14 06/12/21 17:40 BP 127/54 L 06/12/21 17:40 Pulse Ox 89 L 06/12/21 17:40 - Orders/Labs/Meds Orders: Active Orders 24 hr Category Date Time Status Chest 2V [CR] Stat Exams 06/12/21 17:50 Taken CULTURE URINE [RM] Stat Lab 06/12/21 18:44 Received Labs: Laboratory Tests 06/12/21 06/12/21 06/12/21 Range/Units 17:48 18:03 18:03 WBC 8.7 (4.0-11.0) 10^3/uL RBC 3.12 L (4.00-5.50) x10^6/uL Hgb 8.8 L (12.0-16.0) g/dL Hct 26.6 L (37.0-47.0) % MCV 85.3 (83.0-97.0) fL MCH 28.2 (27.0-32.0) pg MCHC 33.1 (32.0-36.0) g/dL RDW Coeff of [place] 15.8 H (11.0-15.0) % Plt Count 157 (150-400) 10^3/uL Immature Gran % (Auto) 0.1 (0.0-4.9) % Neut % (Auto) 85.9 H (41-71) % Lymph % (Auto) 5.2 L (24-44) % [place] % (Auto) 7.0 (0-10) % Eos % (Auto) 1.5 (0-6) % Baso % (Auto) 0.3 (0-1) % Neut # (Auto) 7.46 (1.80-8.00) x10^3/uL Lymph # (Auto) 0.45 L (0.60-5.00) 10^3/uL [place] # (Auto) 0.61 (0.00-1.50) 10^3/uL Eos # (Auto) 0.13 (0.00-1.50) 10^3/uL Baso # (Auto) 0.03 (0.00-0.50) 10^3/uL Immature Gran # (Auto) 0.01 (0.00-0.49) 10^3/uL Sodium 135 L (136-145) mEq/L Potassium 3.4 L (3.5-5.0) mEq/L Chloride 100 (98-106) mEq/L Carbon Dioxide 29 (21-32) mmol/L BUN 31 H (7-18) mg/dL Creatinine 1.4 H (0.6-1.0) mg/dL Est Cr Clr Drug Dosing 27.68 mL/min Estimated GFR (MDRD) 36 L (>=60) mL/min Glucose 155 H D (75-99) mg/dL Calcium 8.4 (8.4-10.1) mg/dL C-Reactive Protein 15.4 H (0.2-0.8) mg/dL NT-Pro-B Natriuret Pep 73153 H (0-1000) pg/mL Urine Color Yellow (YELLOW) Urine Appearance Cloudy (CLEAR) Urine pH 6.5 (4.5-8.0) Ur Specific [place] 1.020 (1.003-1.020) Urine Protein Negative (NEGATIVE) mg/dL Urine Glucose (UA) Negative (NEGATIVE) mg/dL Urine Ketones Negative (NEGATIVE) mg/dL Urine Occult Blood Trace-intact H (NEGATIVE) Urine Nitrite Negative (NEGATIVE) Urine Bilirubin Negative (NEGATIVE) Urine Urobilinogen 0.2 (0.2-1.0) EU/dL Ur Leukocyte Esterase Large H (NEGATIVE) Urine RBC 0-5 (0-5) /HPF Urine WBC >100 H (0-5) /HPF Ur Squamous Epith Cells Moderate H (NOT SEEN) /HPF Urine Bacteria Few H (NOT SEEN) /HPF Meds: Medications Discontinued Medications Generic Name Dose Route Start Last Admin Trade Name Freq PRN Reason Stop Dose Admin Dextrose/Water 50 ml 06/12/21 17:31 06/12/21 17:44 50% Dextrose In Water 50 Ml Syringe IVPUSH 06/12/21 17:32 50 ml ONETIME ONE Administration - Re-Assessments/Exams Free Text/Narrative Re-Assessment/Exam: 06/12/21 18:40 Labs and xray results reviewed with daughter and son and pt. She will be admitted acute to Dr. Crawford with IV lasix, antibiotics and follow up labs tomorrow. Departure - Departure Time of Disposition: 18:40 Disposition: Admitted As Inpatient 67 Clinical Impression: UTI, Urinary tract infectious disease, CHF, Congestive heart failure, Hypoglycemia - Discharge Information *PRESCRIPTION DRUG MONITORING PROGRAM REVIEWED*: Not Applicable *COPY OF PRESCRIPTION DRUG MONITORING REPORT IN PATIENT JAMIE: Not Applicable Referrals: Fuentes Crawford MD [Primary Care Provider] - Forms: ED Department Discharge Sepsis Event Note (ED) - Evaluation Sepsis Screening Result: No Definite Risk - Focused Exam Vital Signs: Vital Signs Temp Pulse Resp BP Pulse Ox 06/12/21 17:40 97.9 F 85 14 127/54 L 89 L - Problem List & Annotations (1) CHF (congestive heart failure) SNOMED Code(s): 05524234 Code(s): I50.9 - HEART FAILURE, UNSPECIFIED Status: Acute Priority: High Qualifiers: Heart failure type: unspecified Heart failure chronicity: acute on chronic Qualified Code(s): I50.9 - Heart failure, unspecified (2) Urinary tract infection SNOMED Code(s): 29103507 Code(s): N39.0 - URINARY TRACT INFECTION, SITE NOT SPECIFIED Status: Acute Priority: High Qualifiers: Urinary tract infection type: site unspecified Hematuria presence: without hematuria Qualified Code(s): N39.0 - Urinary tract infection, site not specified (3) Diabetes mellitus type 2 SNOMED Code(s): 47230301 Code(s): E11.9 - TYPE 2 DIABETES MELLITUS WITHOUT COMPLICATIONS Status: Chronic Priority: High - Problem List Review Problem List Initiated/Reviewed/Updated: Yes - My Orders Last 24 Hours: My Active Orders 06/12/21 17:50 Chest 2V [CR] Stat 06/12/21 18:44 CULTURE URINE [RM] Stat - Assessment/Plan Admission H&P: Please use this note as an admission H&P Last 24 Hours: My Active Orders 06/12/21 17:50 Chest 2V [CR] Stat 06/12/21 18:44 CULTURE URINE [RM] Stat Plan: Will admit acute care for CHF, acute UTI, hypoglycemic reaction. Will start some IV lasix, antibiotics and monitor blood sugars closely.
[2021-06-12] MEDS ORDERED: Sodium Chloride 0.9% 10 ML Syringe FLUSH PRN (19:33)
[2021-06-12] MEDS ORDERED: Furosemide 40 MG/4 ML VIAL IVPUSH SCH (19:45)
[2021-06-12] MEDS ORDERED: Levofloxacin/Dextrose 5%-Water 500 MG in Premix Bag 1 BAG IV SCH (20:00)
[2021-06-12] MEDS: Pantoprazole 40 MG Vial IVPUSH SCH (20:11)
[2021-06-12] MEDS: Apixaban 5 MG Tab PO SCH (20:12)
[2021-06-13] MEDS: Pantoprazole 40 MG Vial IVPUSH SCH ×2 (07:56→21:36)
[2021-06-13] MEDS: Apixaban 5 MG Tab PO SCH ×2 (07:56→21:36)
[2021-06-13] MEDS: Allopurinol 100 MG Tab PO SCH (07:57)
[2021-06-13] MEDS ORDERED: Insulin Glarg,Human.Rec.Analog 100 Unit/ML SUBCUT SCH (08:00)
[2021-06-13] MEDS ORDERED: 50% Dextrose in Water 50 ML Syringe IVPUSH PRN (12:43)
[2021-06-13] MEDS ORDERED: Glucagon,Human Recombinant 1 MG Vial IM PRN (12:43)
[2021-06-13] MEDS: Furosemide 40 MG Tab PO SCH (13:15)
--- NOTE | 2021-06-13 14:04 | PN ---
DATE: 06/13/2021 S: Mrs. Orellana is an 81-year-old [facility] resident who was admitted yesterday for hypoglycemia, UTI, and CHF. She is a recent readmission to the [facility] after failing to thrive at home. She had been there recovering from a hip fracture I believe and went home and was not improved. She had lethargy and confusion and drop in her sats at the [facility]. Then, she was brought to our facility where she was evaluated. At the time, she had a low-grade anemia of 8.8. She was hypokalemic and blood sugar reportedly when ambulance came to get her was in the 60s. Her CRP was elevated as was her proBNP. I did review her urine which looks positive. Culture is pending and chest x-ray did show acute CHF. O: GENERAL: She is in her room. She is pleasant. She is a little drowsy still, but does smile and answer questions. She says she feels improved. NECK: Her neck veins are nondistended. LUNGS: She still has some fine basilar crackles, but I suspect improved compared to prior given what I read. CARDIAC: Tones are regular. ABDOMEN: Soft. EXTREMITIES: She has scant ankle edema. ASSESSMENT: 1. ACUTE CONGESTIVE HEART FAILURE. 2. CHRONIC ATRIAL FIBRILLATION, CURRENTLY ANTICOAGULATED. 3. HYPOGLYCEMIC EPISODE. 4. URINARY TRACT INFECTION. P: We will continue all cares. I believe she is getting a daily dose of IV Lasix and we will continue to monitor her heart failure. Get a repeat chest x- ray tomorrow. Continue IV Levaquin until urine culture is back. GHULAM/TEREZA /[id number]
[2021-06-13] MEDS: Insulin Lispro 100 Units/ML 3 ML Vial SUBCUT SCH ×2 (17:27→21:47)
[2021-06-13] MEDS ORDERED: Levofloxacin/Dextrose 5%-Water 250 MG in Premix Bag 1 BAG IV SCH (20:00)
[2021-06-14] MEDS: Furosemide 40 MG Tab PO SCH (08:48)
[2021-06-14] MEDS: Apixaban 5 MG Tab PO SCH ×2 (08:48→19:42)
[2021-06-14] MEDS: Pantoprazole 40 MG Vial IVPUSH SCH ×2 (08:48→19:42)
[2021-06-14] MEDS: Allopurinol 100 MG Tab PO SCH (08:48)
[2021-06-14] MEDS: Insulin Lispro 100 Units/ML 3 ML Vial SUBCUT SCH ×4 (08:50→21:59)
[2021-06-14] MEDS: Sulfamethoxazole/Trimethoprim 800-160 MG Tab PO SCH ×2 (12:40→19:43)
[2021-06-14] MEDS ORDERED: Furosemide 20 MG/2 ML VIAL IVPUSH ONE (14:54)
--- NOTE | 2021-06-14 15:38 | PCM.PN ---
- General Info Date of Service: 06/14/21 Functional Status: Reports: Pain Controlled, Tolerating Diet, Urinating (Khan), New Symptoms (increased shortness of breath) - Review of Systems General: Reports: Weakness HEENT: Reports: No Symptoms Pulmonary: Reports: Shortness of Breath Cardiovascular: Reports: Orthopnea Gastrointestinal: Reports: No Symptoms Genitourinary: Reports: No Symptoms Musculoskeletal: Reports: No Symptoms Skin: Reports: No Symptoms Neurological: Reports: No Symptoms Psychiatric: Reports: Confusion - Patient Data Vitals - Most Recent: Last Vital Signs Temp 97.6 F 06/14/21 12:00 Pulse 81 06/14/21 12:00 Resp 18 06/14/21 12:00 BP 105/50 L 06/14/21 12:00 Pulse Ox 94 L 06/14/21 12:00 Weight - Most Recent: 140 lb 14.4 oz I&O - Last 24 Hours: Intake & Output 06/14/21 06/14/21 06/14/21 06:59 14:59 22:59 Intake Total 120 Output Total 225 Balance -105 Lab Results Last 24 Hours: Laboratory Results - last 24 hr 06/13/21 06/13/21 06/14/21 Range/Units 17:22 21:25 07:10 WBC 10.1 (4.0-11.0) 10^3/uL RBC 3.12 L (4.00-5.50) x10^6/uL Hgb 8.7 L (12.0-16.0) g/dL Hct 26.5 L (37.0-47.0) % MCV 84.9 (83.0-97.0) fL MCH 27.9 (27.0-32.0) pg MCHC 32.8 (32.0-36.0) g/dL RDW Coeff of Frederick 15.9 H (11.0-15.0) % Plt Count 140 L (150-400) 10^3/uL Immature Gran % (Auto) 0.3 (0.0-4.9) % Neut % (Auto) 87.1 H (41-71) % Lymph % (Auto) 4.6 L (24-44) % Woodward % (Auto) 7.0 (0-10) % Eos % (Auto) 0.8 (0-6) % Baso % (Auto) 0.2 (0-1) % Neut # (Auto) 8.82 H (1.80-8.00) x10^3/uL Lymph # (Auto) 0.47 L (0.60-5.00) 10^3/uL Woodward # (Auto) 0.71 (0.00-1.50) 10^3/uL Eos # (Auto) 0.08 (0.00-1.50) 10^3/uL Baso # (Auto) 0.02 (0.00-0.50) 10^3/uL Immature Gran # (Auto) 0.03 (0.00-0.49) 10^3/uL Sodium (136-145) mEq/L Potassium (3.5-5.0) mEq/L Chloride (98-106) mEq/L Carbon Dioxide (21-32) mmol/L BUN (7-18) mg/dL Creatinine (0.6-1.0) mg/dL Est Cr Clr Drug Dosing mL/min Estimated GFR (MDRD) (>=60) mL/min Glucose (75-99) mg/dL POC Glucose 244 H 248 H (75-105) mg/dL Calcium (8.4-10.1) mg/dL NT-Pro-B Natriuret Pep (0-1000) pg/mL 06/14/21 06/14/21 Range/Units 07:10 11:32 WBC (4.0-11.0) 10^3/uL RBC (4.00-5.50) x10^6/uL Hgb (12.0-16.0) g/dL Hct (37.0-47.0) % MCV (83.0-97.0) fL MCH (27.0-32.0) pg MCHC (32.0-36.0) g/dL RDW Coeff of Frederick (11.0-15.0) % Plt Count (150-400) 10^3/uL Immature Gran % (Auto) (0.0-4.9) % Neut % (Auto) (41-71) % Lymph % (Auto) (24-44) % Woodward % (Auto) (0-10) % Eos % (Auto) (0-6) % Baso % (Auto) (0-1) % Neut # (Auto) (1.80-8.00) x10^3/uL Lymph # (Auto) (0.60-5.00) 10^3/uL Woodward # (Auto) (0.00-1.50) 10^3/uL Eos # (Auto) (0.00-1.50) 10^3/uL Baso # (Auto) (0.00-0.50) 10^3/uL Immature Gran # (Auto) (0.00-0.49) 10^3/uL Sodium 135 L (136-145) mEq/L Potassium 3.9 (3.5-5.0) mEq/L Chloride 101 (98-106) mEq/L Carbon Dioxide 28 (21-32) mmol/L BUN 31 H (7-18) mg/dL Creatinine 1.4 H (0.6-1.0) mg/dL Est Cr Clr Drug Dosing 27.68 mL/min Estimated GFR (MDRD) 36 L (>=60) mL/min Glucose 179 H (75-99) mg/dL POC Glucose 195 H (75-105) mg/dL Calcium 8.6 (8.4-10.1) mg/dL NT-Pro-B Natriuret Pep 93721 H (0-1000) pg/mL Josh Results Last 24 Hours: Microbiology 06/12/21 18:44 Urine Culture - Final Urine, Voided Staphylococcus Simulans Med Orders - Current: Current Medications Allopurinol (Allopurinol 100 Mg Tab) 100 mg PO DAILY [facility] Last Admin: 06/14/21 08:48 Dose: 100 mg Documented by: Apixaban (Apixaban 5 Mg Tab) 5 mg PO BID [facility] Last Admin: 06/14/21 08:48 Dose: 5 mg Documented by: Dextrose/Water (50% Dextrose In Water 50 Ml Syringe) 50 ml IVPUSH ASDIRECTED PRN PRN Reason: Hypoglycemia Furosemide (Furosemide 40 Mg/4 Ml Vial) 40 mg IVPUSH BID [facility] Stop: 06/15/21 20:01 Furosemide (Furosemide 40 Mg Tab) 40 mg PO BIDDIURETIC [facility] Glucagon (Glucagon,Human Recombinant 1 Mg Vial) 1 mg IM ASDIRECTED PRN PRN Reason: Hypoglycemia Insulin Glargine (Insulin Glarg,Human.Rec.Analog 100 Unit/Ml) 16 unit SUBCUT DAILY [facility] Last Admin: 06/13/21 12:46 Dose: Not Given Documented by: Insulin Human Lispro (Insulin Lispro 100 Units/Ml 3 Ml Vial) 0 unit SUBCUT WITHMEALSANDBED [facility]; Protocol Last Admin: 06/14/21 12:13 Dose: 1 unit Documented by: Magnesium Oxide (Magnesium Oxide 250 Mg Tab) 500 mg PO DAILY [facility] Last Admin: 06/14/21 08:47 Dose: 500 mg Documented by: Liraglutide [Victoza (] 18 Mg/3 Ml Pen) 1.8 mg SUBCUT DAILY [facility] Pantoprazole Sodium (Pantoprazole 40 Mg Vial) 40 mg IVPUSH Q12H [facility] Last Admin: 06/14/21 08:48 Dose: 40 mg Documented by: Sodium Chloride (Sodium Chloride 0.9% 10 Ml Syringe) 10 ml FLUSH ASDIRECTED PRN PRN Reason: Keep Vein Open Trimethoprim/Sulfamethoxazole (Sulfamethoxazole/Trimethoprim 800-160 Mg Tab) 0.5 tab PO BID [facility] Stop: 06/18/21 20:01 Last Admin: 06/14/21 12:40 Dose: 0.5 tab Documented by: Discontinued Medications Dextrose/Water (50% Dextrose In Water 50 Ml Syringe) 50 ml IVPUSH ONETIME ONE Stop: 06/12/21 17:32 Last Admin: 06/12/21 17:44 Dose: 50 ml Documented by: Furosemide (Furosemide 40 Mg/4 Ml Vial) 40 mg IVPUSH Q24H [facility] Last Admin: 06/12/21 20:13 Dose: 40 mg Documented by: Furosemide (Furosemide 40 Mg Tab) 40 mg PO DAILY [facility] Last Admin: 06/14/21 08:48 Dose: 40 mg Documented by: Furosemide (Furosemide 20 Mg/2 Ml Vial) 20 mg IVPUSH ONETIME ONE Stop: 06/14/21 14:55 Last Admin: 06/14/21 15:04 Dose: 20 mg Documented by: Levofloxacin/Dextrose 500 mg/ (Premix) 100 mls @ 100 mls/hr IV Q24H [facility] Stop: 06/12/21 20:59 Last Admin: 06/12/21 20:15 Dose: 100 mls/hr Documented by: Levofloxacin/Dextrose 250 mg/ (Premix) 50 mls @ 50 mls/hr IV Q24H [facility] Last Admin: 06/13/21 21:37 Dose: 50 mls/hr Documented by: Nitrofurantoin Macrocrystals (Nitrofurantoin Monohydrate/Macrocrystalline 100 Mg Cap) 100 mg PO BIDMEALS [facility] Stop: 06/19/21 08:01 Pantoprazole Sodium (Pantoprazole 40 Mg Vial) 40 mg IVPUSH Q12H [facility] Last Admin: 06/13/21 07:56 Dose: 40 mg Documented by: - Exam General: Alert, Oriented, Cooperative HEENT: Pupils Equal, Pupils Reactive Neck: Supple, Trachea Midline, JVD Lungs: Rales, Other (tachpnea, appears short of breath. ) Cardiovascular: Regular Rate, Regular Rhythm, Murmurs GI/Abdominal Exam: Soft, Non-Tender Back Exam: Normal Inspection Extremities: Normal Inspection, Normal Range of Motion, Non-Tender, No Pedal Edema, Normal Capillary Refill Peripheral Pulses: 2+: Radial (L), Radial (R), Posterior Tibial (L), Posterior Tibial (R), Dorsalis Pedis (L), Dorsalis Pedis (R) Skin: Warm, Dry, Intact Neurological: No New Focal Deficit, Normal Speech Psy/Mental Status: Alert, Normal Affect, Normal Mood - Patient Data Lab Results Last 24 hrs: Laboratory Results - last 24 hr 06/13/21 06/13/21 06/14/21 Range/Units 17:22 21:25 07:10 WBC 10.1 (4.0-11.0) 10^3/uL RBC 3.12 L (4.00-5.50) x10^6/uL Hgb 8.7 L (12.0-16.0) g/dL Hct 26.5 L (37.0-47.0) % MCV 84.9 (83.0-97.0) fL MCH 27.9 (27.0-32.0) pg MCHC 32.8 (32.0-36.0) g/dL RDW Coeff of Frederick 15.9 H (11.0-15.0) % Plt Count 140 L (150-400) 10^3/uL Immature Gran % (Auto) 0.3 (0.0-4.9) % Neut % (Auto) 87.1 H (41-71) % Lymph % (Auto) 4.6 L (24-44) % Woodward % (Auto) 7.0 (0-10) % Eos % (Auto) 0.8 (0-6) % Baso % (Auto) 0.2 (0-1) % Neut # (Auto) 8.82 H (1.80-8.00) x10^3/uL Lymph # (Auto) 0.47 L (0.60-5.00) 10^3/uL Woodward # (Auto) 0.71 (0.00-1.50) 10^3/uL Eos # (Auto) 0.08 (0.00-1.50) 10^3/uL Baso # (Auto) 0.02 (0.00-0.50) 10^3/uL Immature Gran # (Auto) 0.03 (0.00-0.49) 10^3/uL Sodium (136-145) mEq/L Potassium (3.5-5.0) mEq/L Chloride (98-106) mEq/L Carbon Dioxide (21-32) mmol/L BUN (7-18) mg/dL Creatinine (0.6-1.0) mg/dL Est Cr Clr Drug Dosing mL/min Estimated GFR (MDRD) (>=60) mL/min Glucose (75-99) mg/dL POC Glucose 244 H 248 H (75-105) mg/dL Calcium (8.4-10.1) mg/dL NT-Pro-B Natriuret Pep (0-1000) pg/mL 06/14/21 06/14/21 Range/Units 07:10 11:32 WBC (4.0-11.0) 10^3/uL RBC (4.00-5.50) x10^6/uL Hgb (12.0-16.0) g/dL Hct (37.0-47.0) % MCV (83.0-97.0) fL MCH (27.0-32.0) pg MCHC (32.0-36.0) g/dL RDW Coeff of Frederick (11.0-15.0) % Plt Count (150-400) 10^3/uL Immature Gran % (Auto) (0.0-4.9) % Neut % (Auto) (41-71) % Lymph % (Auto) (24-44) % Woodward % (Auto) (0-10) % Eos % (Auto) (0-6) % Baso % (Auto) (0-1) % Neut # (Auto) (1.80-8.00) x10^3/uL Lymph # (Auto) (0.60-5.00) 10^3/uL Woodward # (Auto) (0.00-1.50) 10^3/uL Eos # (Auto) (0.00-1.50) 10^3/uL Baso # (Auto) (0.00-0.50) 10^3/uL Immature Gran # (Auto) (0.00-0.49) 10^3/uL Sodium 135 L (136-145) mEq/L Potassium 3.9 (3.5-5.0) mEq/L Chloride 101 (98-106) mEq/L Carbon Dioxide 28 (21-32) mmol/L BUN 31 H (7-18) mg/dL Creatinine 1.4 H (0.6-1.0) mg/dL Est Cr Clr Drug Dosing 27.68 mL/min Estimated GFR (MDRD) 36 L (>=60) mL/min Glucose 179 H (75-99) mg/dL POC Glucose 195 H (75-105) mg/dL Calcium 8.6 (8.4-10.1) mg/dL NT-Pro-B Natriuret Pep 28240 H (0-1000) pg/mL Result Diagrams: 06/14/21 07:10 06/14/21 07:10 Josh Results Last 24 hrs: Microbiology 06/12/21 18:44 Urine Culture - Final Urine, Voided Staphylococcus Simulans Sepsis Event Note - Evaluation Sepsis Screening Result: No Definite Risk - Focused Exam Vital Signs: Vital Signs Temp Pulse Resp BP Pulse Ox 06/14/21 12:00 97.6 F 81 18 105/50 L 94 L 06/14/21 08:00 97.5 F 87 18 109/40 L 93 L 06/14/21 04:00 97.7 F 87 28 H 97/39 L 94 L - Problem List Review Problem List Initiated/Reviewed/Updated: Yes - My Orders Last 24 Hours: My Active Orders 06/14/21 12:21 Sulfamethoxazole/Trimethoprim [Septra DS] 0.5 tab PO BID 06/14/21 20:00 Furosemide [Lasix] 40 mg IVPUSH BID 06/15/21 05:00 BASIC METABOLIC PANEL,BMP [CHEM] DAILY CBC WITH AUTO DIFF [HEME] DAILY 06/16/21 05:00 BASIC METABOLIC PANEL,BMP [CHEM] DAILY CBC WITH AUTO DIFF [HEME] DAILY 06/16/21 08:00 Echo Comp wo Cont [US] Routine Furosemide [Lasix] 40 mg PO BIDDIURETIC - Plan Plan:: 06/14/21 1410 Patient was admitted for confusion, hypoglycemia, and congestive heart failure. Patient today reports that she feels more short of breath. She appears short of breath on exam. She has rales on auscultation throughout. Family is at bedside. The patient is alert and oriented today. I reviewed patient CXR that was done today and appears to have worsening consolidation consistent with her heart failure. Her BNP has not changed much from yesterday. Her CR is 1.4 today. The patient was transitioned to Lasix PO 20mg yesterday. I have discontinued this order. I have started her on IV Lasix. She will get 1 Lasix 20mg IV now, then start Lasix 40mg IV BID at 2000 this evening. Patient has a Khan in place. Will continue I/O. I will evaluate in the morning, if no improvement, may foreign exchange trader to nitro. Discussed with the family about obtaining an echocardiogram in the week. They report that would be fine to obtain. I had a 30 minute conversation with family about patient heart failure, use of diuretics, and her renal function. They are aware and understand the risk vs benefits of using Lasix. They report they would like to keep her comfortable by removing the fluid to help her breath easier. Will continue admit. Have switched Lasix to IV, will evaluate for nitro need tomorrow or sooner if needed. Patient culture report for urine has been reviewed. Patient Levaquin was discharged and changed to Microbid, however pharmacy reports due to milk allergy should switch. Therefore, patient was changed to Bactrim DS PO. CR and BNP discussed above, otherwise labs are unremarkable. Will continue admit.
[2021-06-14] MEDS ORDERED: Nitrofurantoin Monohydrate/Macrocrystalline 100 MG Cap PO SCH (17:30)
[2021-06-14] MEDS: Furosemide 40 MG/4 ML VIAL IVPUSH SCH (19:49)
--- NOTE | 2021-06-14 22:14 | PCM.SN.2 ---
- Free Text/Narrative Note: 06/14/212129 This patient is breathing 36/min, BP 104/56, Oxygen saturation 95% on 4L NC, HR 85. Son patient is more confused tonight. She does report she is short of breath. I talked with the son who is at the nurses station about patient condition. He reports he just wants her to be comfortable. He reports she was talking about wanting to . He is not the POA. Attempting to obtain Living will information from the longterm, as this is not listed on the patient chart. The patient is currently on Lasix. Can not add Nitro paste due to patient BP of 104/56. The patient reports to me that she is uncomfortable. She reports that her butt hurts and she feels more short of breath than earlier. She reports that her fast breathing is making her uncomfortable. She currently is alert and oriented to person and place at this time. She says its 2001. The patient is requesting something to make her more comfortable and help with her breathing. I will give the patient some Morphine to help with her pain to help her more comfortable. I am awaiting on POA contact information and living will to determine who the POA is legally. 06/14/212209 I have obtained health directive from longterm for patient. Hugh Orellana is the first POA, second option if Hugh is unable is Jalyn Orellana. I called and spoke to son Hugh about his mother/patient. I explained the patient to him and what has been done for her during her stay. I explained to him what the patient has told me. I explained to him the patient exam today and this evening. He has voiced understanding. He reports that he would like to keep her comfortable. He reports that he will talk to his brother and sisters and explain what is going on as well. I have put in an order for Morphine PRN to be given to patient for shortness of breath and "uncomfortable". At this time, will continue all her meds and labs ordered for morning. Will review and see patient tomorrow and discuss further plan with Hugh tomorrow. If the patient worsens, RN will call me and the son Hugh.
[2021-06-14] MEDS ORDERED: Morphine 2 MG/ML SYRINGE IVPUSH ONE (22:20)
[2021-06-14] MEDS ORDERED: Ondansetron 4 MG/2 ML SDV IVPUSH STA (22:20)
[2021-06-15] MEDS: Apixaban 5 MG Tab PO SCH (08:09)
[2021-06-15] MEDS: Allopurinol 100 MG Tab PO SCH (08:09)
[2021-06-15] MEDS: Furosemide 40 MG/4 ML VIAL IVPUSH SCH ×2 (08:09→20:19)
[2021-06-15] MEDS: Sulfamethoxazole/Trimethoprim 800-160 MG Tab PO SCH (08:09)
[2021-06-15] MEDS: Pantoprazole 40 MG Vial IVPUSH SCH (08:10)
[2021-06-15] MEDS: Insulin Lispro 100 Units/ML 3 ML Vial SUBCUT SCH (08:10)
[2021-06-15 08:35] VITALS: BP 99/39; PULSE 98
--- NOTE | 2021-06-15 10:57 | PCM.PN ---
- General Info Date of Service: 06/15/21 Functional Status: Reports: Pain Controlled (currently now), Urinating (decreased: Khan) - Review of Systems General: Reports: Weakness, Appetite (decreased) HEENT: Reports: Other (difficulty swallowing) Pulmonary: Reports: Shortness of Breath Cardiovascular: Reports: Orthopnea Gastrointestinal: Reports: Decreased Appetite, Difficulty Swallowing Genitourinary: Reports: Other (decreased output) Skin: Reports: No Symptoms Neurological: Reports: No Symptoms Psychiatric: Reports: No Symptoms - Patient Data Vitals - Most Recent: Last Vital Signs Temp 97.9 F 06/15/21 08:00 Pulse 98 06/15/21 08:00 Resp 36 H 06/15/21 08:00 BP 99/39 L 06/15/21 08:00 Pulse Ox 92 L 06/15/21 08:00 Weight - Most Recent: 141 lb 12.8 oz I&O - Last 24 Hours: Intake & Output 06/14/21 06/15/21 06/15/21 22:59 06:59 14:59 Intake Total 840 200 Output Total 250 125 Balance 590 75 Lab Results Last 24 Hours: Laboratory Results - last 24 hr 06/14/21 06/14/21 06/14/21 Range/Units 11:32 17:39 21:56 WBC (4.0-11.0) 10^3/uL RBC (4.00-5.50) x10^6/uL Hgb (12.0-16.0) g/dL Hct (37.0-47.0) % MCV (83.0-97.0) fL MCH (27.0-32.0) pg MCHC (32.0-36.0) g/dL RDW Coeff of Frederick (11.0-15.0) % Plt Count (150-400) 10^3/uL Immature Gran % (Auto) (0.0-4.9) % Neut % (Auto) (41-71) % Lymph % (Auto) (24-44) % Estill % (Auto) (0-10) % Eos % (Auto) (0-6) % Baso % (Auto) (0-1) % Neut # (Auto) (1.80-8.00) x10^3/uL Lymph # (Auto) (0.60-5.00) 10^3/uL Estill # (Auto) (0.00-1.50) 10^3/uL Eos # (Auto) (0.00-1.50) 10^3/uL Baso # (Auto) (0.00-0.50) 10^3/uL Immature Gran # (Auto) (0.00-0.49) 10^3/uL Sodium (136-145) mEq/L Potassium (3.5-5.0) mEq/L Chloride (98-106) mEq/L Carbon Dioxide (21-32) mmol/L BUN (7-18) mg/dL Creatinine (0.6-1.0) mg/dL Est Cr Clr Drug Dosing mL/min Estimated GFR (MDRD) (>=60) mL/min Glucose (75-99) mg/dL POC Glucose 195 H 272 H 249 H (75-105) mg/dL Calcium (8.4-10.1) mg/dL NT-Pro-B Natriuret Pep (0-1000) pg/mL 06/15/21 06/15/21 06/15/21 Range/Units 07:00 07:00 07:57 WBC 12.0 H (4.0-11.0) 10^3/uL RBC 3.07 L (4.00-5.50) x10^6/uL Hgb 8.6 L (12.0-16.0) g/dL Hct 26.2 L (37.0-47.0) % MCV 85.3 (83.0-97.0) fL MCH 28.0 (27.0-32.0) pg MCHC 32.8 (32.0-36.0) g/dL RDW Coeff of Frederick 16.2 H (11.0-15.0) % Plt Count 140 L (150-400) 10^3/uL Immature Gran % (Auto) 0.3 (0.0-4.9) % Neut % (Auto) 86.7 H (41-71) % Lymph % (Auto) 4.8 L (24-44) % Estill % (Auto) 6.3 (0-10) % Eos % (Auto) 1.6 (0-6) % Baso % (Auto) 0.3 (0-1) % Neut # (Auto) 10.37 H (1.80-8.00) x10^3/uL Lymph # (Auto) 0.58 L (0.60-5.00) 10^3/uL Estill # (Auto) 0.75 (0.00-1.50) 10^3/uL Eos # (Auto) 0.19 (0.00-1.50) 10^3/uL Baso # (Auto) 0.04 (0.00-0.50) 10^3/uL Immature Gran # (Auto) 0.03 (0.00-0.49) 10^3/uL Sodium 136 (136-145) mEq/L Potassium 4.2 (3.5-5.0) mEq/L Chloride 100 (98-106) mEq/L Carbon Dioxide 27 (21-32) mmol/L BUN 38 H (7-18) mg/dL Creatinine 1.8 H (0.6-1.0) mg/dL Est Cr Clr Drug Dosing 21.53 mL/min Estimated GFR (MDRD) 27 L (>=60) mL/min Glucose 157 H (75-99) mg/dL POC Glucose 161 H (75-105) mg/dL Calcium 8.6 (8.4-10.1) mg/dL NT-Pro-B Natriuret Pep 97382 H (0-1000) pg/mL Josh Results Last 24 Hours: Microbiology 06/12/21 18:44 Urine Culture - Final Urine, Voided Staphylococcus Simulans Med Orders - Current: Current Medications Furosemide (Furosemide 40 Mg/4 Ml Vial) 40 mg IVPUSH BID [facility] Stop: 06/15/21 20:01 Last Admin: 06/15/21 08:09 Dose: 40 mg Documented by: Lorazepam (Lorazepam 2 Mg/Ml Syringe) 0.5 mg IVPUSH Q6H ISAIAH Morphine Sulfate (Morphine 2 Mg/Ml Syringe) 2 mg IVPUSH Q4H PRN PRN Reason: Shortness of Breath Morphine Sulfate (Morphine 2 Mg/Ml Syringe) 1 mg IVPUSH Q4H ISAIAH Sodium Chloride (Sodium Chloride 0.9% 10 Ml Syringe) 10 ml FLUSH ASDIRECTED PRN PRN Reason: Keep Vein Open Discontinued Medications Allopurinol (Allopurinol 100 Mg Tab) 100 mg PO DAILY [facility] Last Admin: 06/15/21 08:09 Dose: 100 mg Documented by: Apixaban (Apixaban 5 Mg Tab) 5 mg PO BID [facility] Last Admin: 06/15/21 08:09 Dose: 5 mg Documented by: Dextrose/Water (50% Dextrose In Water 50 Ml Syringe) 50 ml IVPUSH ONETIME ONE Stop: 06/12/21 17:32 Last Admin: 06/12/21 17:44 Dose: 50 ml Documented by: Dextrose/Water (50% Dextrose In Water 50 Ml Syringe) 50 ml IVPUSH ASDIRECTED PRN PRN Reason: Hypoglycemia Furosemide (Furosemide 40 Mg/4 Ml Vial) 40 mg IVPUSH Q24H [facility] Last Admin: 06/12/21 20:13 Dose: 40 mg Documented by: Furosemide (Furosemide 40 Mg Tab) 40 mg PO DAILY [facility] Last Admin: 06/14/21 08:48 Dose: 40 mg Documented by: Furosemide (Furosemide 20 Mg/2 Ml Vial) 20 mg IVPUSH ONETIME ONE Stop: 06/14/21 14:55 Last Admin: 06/14/21 15:04 Dose: 20 mg Documented by: Furosemide (Furosemide 40 Mg Tab) 40 mg PO BIDDIURETIC [facility] Glucagon (Glucagon,Human Recombinant 1 Mg Vial) 1 mg IM ASDIRECTED PRN PRN Reason: Hypoglycemia Levofloxacin/Dextrose 500 mg/ (Premix) 100 mls @ 100 mls/hr IV Q24H [facility] Stop: 06/12/21 20:59 Last Admin: 06/12/21 20:15 Dose: 100 mls/hr Documented by: Levofloxacin/Dextrose 250 mg/ (Premix) 50 mls @ 50 mls/hr IV Q24H [facility] Last Admin: 06/13/21 21:37 Dose: 50 mls/hr Documented by: Insulin Glargine (Insulin Glarg,Human.Rec.Analog 100 Unit/Ml) 16 unit SUBCUT DAILY [facility] Last Admin: 06/13/21 12:46 Dose: Not Given Documented by: Insulin Human Lispro (Insulin Lispro 100 Units/Ml 3 Ml Vial) 0 unit SUBCUT WITHMEALSANDBED [facility]; Protocol Last Admin: 06/15/21 08:10 Dose: 1 unit Documented by: Magnesium Oxide (Magnesium Oxide 250 Mg Tab) 500 mg PO DAILY [facility] Last Admin: 06/15/21 08:09 Dose: 500 mg Documented by: Morphine Sulfate (Morphine 2 Mg/Ml Syringe) 2 mg IVPUSH ONETIME ONE Stop: 06/14/21 22:21 Last Admin: 06/14/21 22:46 Dose: 2 mg Documented by: Nitrofurantoin Macrocrystals (Nitrofurantoin Monohydrate/Macrocrystalline 100 Mg Cap) 100 mg PO BIDMEALS [facility] Stop: 06/19/21 08:01 Liraglutide [Victoza (] 18 Mg/3 Ml Pen) 1.8 mg SUBCUT DAILY [facility] Ondansetron HCl (Ondansetron 4 Mg/2 Ml Sdv) 4 mg IVPUSH NOW STA Stop: 06/14/21 22:21 Last Admin: 06/14/21 22:43 Dose: 4 mg Documented by: Pantoprazole Sodium (Pantoprazole 40 Mg Vial) 40 mg IVPUSH Q12H [facility] Last Admin: 06/13/21 07:56 Dose: 40 mg Documented by: Pantoprazole Sodium (Pantoprazole 40 Mg Vial) 40 mg IVPUSH Q12H [facility] Last Admin: 06/15/21 08:10 Dose: 40 mg Documented by: Trimethoprim/Sulfamethoxazole (Sulfamethoxazole/Trimethoprim 800-160 Mg Tab) 0.5 tab PO BID [facility] Stop: 06/18/21 20:01 Last Admin: 06/15/21 08:09 Dose: 0.5 tab Documented by: - Exam General: Alert (drowsy, but eyes open and alert), Oriented (to person and self today), Cooperative, Moderate Distress (respirations 36) Neck: Trachea Midline, JVD Lungs: Decreased Breath Sounds, Rales (severe throughout) Cardiovascular: Regular Rate, Regular Rhythm, Murmurs GI/Abdominal Exam: Soft, Non-Tender Back Exam: Normal Inspection Extremities: Normal Inspection, Non-Tender, No Pedal Edema, Normal Capillary Refill Peripheral Pulses: 1+: Radial (L), Radial (R), Posterior Tibial (L), Posterior Tibial (R), Dorsalis Pedis (L), Dorsalis Pedis (R) Skin: Warm, Dry, Intact Neurological: Other (soft spoken speech. Alert, but drowsy. Oriented to self and place.) Psy/Mental Status: Alert, Normal Affect, Normal Mood - Patient Data Lab Results Last 24 hrs: Laboratory Results - last 24 hr 07/31/21 07/31/21 07/31/21 Range/Units 11:32 17:39 21:56 WBC (4.0-11.0) 10^3/uL RBC (4.00-5.50) x10^6/uL Hgb (12.0-16.0) g/dL Hct (37.0-47.0) % MCV (83.0-97.0) fL MCH (27.0-32.0) pg MCHC (32.0-36.0) g/dL RDW Coeff of Frederick (11.0-15.0) % Plt Count (150-400) 10^3/uL Immature Gran % (Auto) (0.0-4.9) % Neut % (Auto) (41-71) % Lymph % (Auto) (24-44) % Estill % (Auto) (0-10) % Eos % (Auto) (0-6) % Baso % (Auto) (0-1) % Neut # (Auto) (1.80-8.00) x10^3/uL Lymph # (Auto) (0.60-5.00) 10^3/uL Estill # (Auto) (0.00-1.50) 10^3/uL Eos # (Auto) (0.00-1.50) 10^3/uL Baso # (Auto) (0.00-0.50) 10^3/uL Immature Gran # (Auto) (0.00-0.49) 10^3/uL Sodium (136-145) mEq/L Potassium (3.5-5.0) mEq/L Chloride (98-106) mEq/L Carbon Dioxide (21-32) mmol/L BUN (7-18) mg/dL Creatinine (0.6-1.0) mg/dL Est Cr Clr Drug Dosing mL/min Estimated GFR (MDRD) (>=60) mL/min Glucose (75-99) mg/dL POC Glucose 195 H 272 H 249 H (75-105) mg/dL Calcium (8.4-10.1) mg/dL NT-Pro-B Natriuret Pep (0-1000) pg/mL 06/15/21 06/15/21 06/15/21 Range/Units 07:00 07:00 07:57 WBC 12.0 H (4.0-11.0) 10^3/uL RBC 3.07 L (4.00-5.50) x10^6/uL Hgb 8.6 L (12.0-16.0) g/dL Hct 26.2 L (37.0-47.0) % MCV 85.3 (83.0-97.0) fL MCH 28.0 (27.0-32.0) pg MCHC 32.8 (32.0-36.0) g/dL RDW Coeff of Frederick 16.2 H (11.0-15.0) % Plt Count 140 L (150-400) 10^3/uL Immature Gran % (Auto) 0.3 (0.0-4.9) % Neut % (Auto) 86.7 H (41-71) % Lymph % (Auto) 4.8 L (24-44) % Estill % (Auto) 6.3 (0-10) % Eos % (Auto) 1.6 (0-6) % Baso % (Auto) 0.3 (0-1) % Neut # (Auto) 10.37 H (1.80-8.00) x10^3/uL Lymph # (Auto) 0.58 L (0.60-5.00) 10^3/uL Estill # (Auto) 0.75 (0.00-1.50) 10^3/uL Eos # (Auto) 0.19 (0.00-1.50) 10^3/uL Baso # (Auto) 0.04 (0.00-0.50) 10^3/uL Immature Gran # (Auto) 0.03 (0.00-0.49) 10^3/uL Sodium 136 (136-145) mEq/L Potassium 4.2 (3.5-5.0) mEq/L Chloride 100 (98-106) mEq/L Carbon Dioxide 27 (21-32) mmol/L BUN 38 H (7-18) mg/dL Creatinine 1.8 H (0.6-1.0) mg/dL Est Cr Clr Drug Dosing 21.53 mL/min Estimated GFR (MDRD) 27 L (>=60) mL/min Glucose 157 H (75-99) mg/dL POC Glucose 161 H (75-105) mg/dL Calcium 8.6 (8.4-10.1) mg/dL NT-Pro-B Natriuret Pep 39838 H (0-1000) pg/mL Result Diagrams: 06/15/21 07:00 06/15/21 07:00 Josh Results Last 24 hrs: Microbiology 06/12/21 18:44 Urine Culture - Final Urine, Voided Staphylococcus Simulans Sepsis Event Note - Evaluation Sepsis Screening Result: Sepsis Risk - Focused Exam Vital Signs: Vital Signs Temp Pulse Resp BP Pulse Ox 06/15/21 08:00 97.9 F 98 36 H 99/39 L 92 L 06/15/21 04:00 97.3 F 99 32 H 103/49 L 91 L 06/14/21 23:40 86 36 H - Problem List Review Problem List Initiated/Reviewed/Updated: Yes - My Orders Last 24 Hours: My Active Orders 06/14/21 20:00 Furosemide [Lasix] 40 mg IVPUSH BID 06/15/21 02:00 Morphine 2 mg IVPUSH Q4H PRN 06/15/21 09:09 Chest 1V Frontal [CR] Routine 06/15/21 10:48 Consult to Palliative Care [CONS] Routine Code Status [Resuscitation Status] Routine 06/15/21 12:00 LORazepam [Ativan] 0.5 mg IVPUSH Q6H 06/15/21 13:00 Morphine 1 mg IVPUSH Q4H 06/16/21 08:00 Echo Comp wo Cont [US] Routine - Plan Plan:: 06/14/21 1410 Patient was admitted for confusion, hypoglycemia, and congestive heart failure. Patient today reports that she feels more short of breath. She appears short of breath on exam. She has rales on auscultation throughout. Family is at bedside. The patient is alert and oriented today. I reviewed patient CXR that was done today and appears to have worsening consolidation consistent with her heart failure. Her BNP has not changed much from yesterday. Her CR is 1.4 today. The patient was transitioned to Lasix PO 20mg yesterday. I have discontinued this order. I have started her on IV Lasix. She will get 1 Lasix 20mg IV now, then start Lasix 40mg IV BID at 2000 this evening. Patient has a Khan in place. Will continue I/O. I will evaluate in the morning, if no improvement, may global director air and climate change to nitro. Discussed with the family about obtaining an echocardiogram in the week. They report that would be fine to obtain. I had a 30 minute conversation with family about patient heart failure, use of diuretics, and her renal function. They are aware and understand the risk vs benefits of using Lasix. They report they would like to keep her comfortable by removing the fluid to help her breath easier. Will continue admit. Have switched Lasix to IV, will evaluate for nitro need tomorrow or sooner if needed. Patient culture report for urine has been reviewed. Patient Levaquin was discharged and changed to Microbid, however pharmacy reports due to milk allergy should switch. Therefore, patient was changed to Bactrim DS PO. CR and BNP discussed above, otherwise labs are unremarkable. Will continue admit. 06/15/21 0950am Patient is palliative care. Expected end of life and patient may during this admit. The patient today is breathing 36/min as she was last night. She reports today that she feels more comfortable, but reports she is tired. She reports to family and myself that she is ready to go home. After increasing her Lasix yesterday, the patient still continues to show worsening of her heart failure. She is in end stage heart failure. Auscultation has significant rales associated with her fluid overload, her CXR is much worse today with pulmonary vascular congestion, and her BNP is much worse today at 20,709. Her CR is also up at 1.8. Patient BP today is 99/39, R 36, Oxygen saturation of 92% on 4L NC. I spent over 30 minutes with 2 brothers and 1 sister in the family room discussing this patient. Hugh FU was in the room. I discussed the patient c ondition, everything that has been done, and her labs, clinical exam, and the patient. I discussed all options with them including continuing current treatment or becoming more aggressive, by putting on Lasix gtt, or Nitro paste, or nitro gtt, but also discussed her BP being so low. We also discussed IV fluids, with heart failure, and hydration. We discussed patient age and quality of life with aggressive treatment if she were to live. After this time spent the family, Hugh FU, have made the decision to move patient to comfort measures. They report they just want to keep her comfortable. They asked to get medication to keep comfortable scheduled to ensure she stays comfortable. They have r equested I stop all PO medications. The patient had difficulty swallowing pills this morning and they think it would be best to stop those. They have requested her only IV medications be Ativan for anxiousness and Morphine for uncomfortable and difficulty breathing. They have agreed to the 1 more dose of Lasix IV scheduled this evening. The patient was moved to room 107 that is larger for family and more private away from the nurses desk. All labs, echo, PT were discontinued. I will leave this patient acute, as she is now palliated and may be near.
[2021-06-15] MEDS: Liraglutide [Victoza] 18 MG/3 ML Pen SUBCUT SCH ×3 (11:12→11:14)
[2021-06-15] MEDS ORDERED: LORazepam 2 MG/ML Syringe IVPUSH SCH ×3 (12:00→18:00)
[2021-06-15] MEDS: Morphine 2 MG/ML SYRINGE IVPUSH SCH ×3 (13:15→20:20)
[2021-06-15] MEDS: Morphine 2 MG/ML SYRINGE IVPUSH PRN ×2 (16:30→22:29)
--- NOTE | 2021-06-15 23:41 | PCM.DCSUM1 ---
Discharge Summary - Hospital Course HPI Initial Comments: RN Daisha notified me the patient . I went in to confirm and see the patient. 2 sons Hugh and Anoop. - Discharge Data Discharge Date: 06/15/21 Discharge Disposition: 20 Condition: - Referral to Home Health Primary Care Physician: Fuentes Crawford MD - Patient Summary/Data Consults: Consultations 06/15/21 10:48 Consult to Palliative Care [CONS] Routine - Discharge Plan *PRESCRIPTION DRUG MONITORING PROGRAM REVIEWED*: Not Applicable *COPY OF PRESCRIPTION DRUG MONITORING REPORT IN PATIENT JAMIE: Not Applicable Home Medications: Home Meds Cholecalciferol (Vitamin D3) [Vitamin D3] 5,000 unit PO BEDTIME 11/01/13 [History] Magnesium Oxide 500 mg PO DAILY 11/01/13 [History] Ubidecarenone [Co Q-10] 100 mg PO DAILY 11/01/13 [History] allopurinoL [Allopurinol] 100 mg PO DAILY 08/29/14 [History] Liraglutide [Victoza] 1.8 mg SUBCUT DAILY 08/20/16 [History] Ascorbic Acid [Vitamin C] 500 mg PO DAILY 04/03/17 [History] Cranberry 500 mg PO DAILY 04/27/19 [History] Torsemide 20 mg PO DAILY 04/27/19 [History] Apixaban [Eliquis] 5 mg PO BID 08/13/19 [History] Insulin Detemir [Levemir] 16 unit SUBCUT DAILY 08/13/19 [History] Forms: ED Department Discharge Referrals: Fuentes Crawford MD [Primary Care Provider] - - Discharge Summary/Plan Comment DC Time >30 min.: No - General Info Date of Service: 06/15/21 Functional Status: Reports: Other () - Review of Systems General: Reports: Other () - Patient Data Vitals - Most Recent: Last Vital Signs Temp 97.9 F 06/15/21 08:00 Pulse 98 06/15/21 08:00 Resp 36 H 06/15/21 08:00 BP 99/39 L 06/15/21 08:00 Pulse Ox 92 L 06/15/21 08:00 Weight - Most Recent: 141 lb 12.8 oz I&O - Last 24 hours: Intake & Output 06/15/21 06/15/21 06/16/21 14:59 22:59 06:59 Output Total 125 Balance -125 Lab Results - Last 24 hrs: Laboratory Results - last 24 hr 06/15/21 06/15/21 06/15/21 Range/Units 07:00 07:00 07:57 WBC 12.0 H (4.0-11.0) 10^3/uL RBC 3.07 L (4.00-5.50) x10^6/uL Hgb 8.6 L (12.0-16.0) g/dL Hct 26.2 L (37.0-47.0) % MCV 85.3 (83.0-97.0) fL MCH 28.0 (27.0-32.0) pg MCHC 32.8 (32.0-36.0) g/dL RDW Coeff of Frederick 16.2 H (11.0-15.0) % Plt Count 140 L (150-400) 10^3/uL Immature Gran % (Auto) 0.3 (0.0-4.9) % Neut % (Auto) 86.7 H (41-71) % Lymph % (Auto) 4.8 L (24-44) % Nicholas % (Auto) 6.3 (0-10) % Eos % (Auto) 1.6 (0-6) % Baso % (Auto) 0.3 (0-1) % Neut # (Auto) 10.37 H (1.80-8.00) x10^3/uL Lymph # (Auto) 0.58 L (0.60-5.00) 10^3/uL Nicholas # (Auto) 0.75 (0.00-1.50) 10^3/uL Eos # (Auto) 0.19 (0.00-1.50) 10^3/uL Baso # (Auto) 0.04 (0.00-0.50) 10^3/uL Immature Gran # (Auto) 0.03 (0.00-0.49) 10^3/uL Sodium 136 (136-145) mEq/L Potassium 4.2 (3.5-5.0) mEq/L Chloride 100 (98-106) mEq/L Carbon Dioxide 27 (21-32) mmol/L BUN 38 H (7-18) mg/dL Creatinine 1.8 H (0.6-1.0) mg/dL Est Cr Clr Drug Dosing 21.53 mL/min Estimated GFR (MDRD) 27 L (>=60) mL/min Glucose 157 H (75-99) mg/dL POC Glucose 161 H (75-105) mg/dL Calcium 8.6 (8.4-10.1) mg/dL NT-Pro-B Natriuret Pep 86522 H (0-1000) pg/mL Med Orders - Current: Current Medications Lorazepam (Lorazepam 2 Mg/Ml Syringe) 1 mg IVPUSH Q6H [facility] Last Admin: 06/15/21 17:26 Dose: 1 mg Documented by: Morphine Sulfate (Morphine 2 Mg/Ml Syringe) 2 mg IVPUSH Q4H PRN PRN Reason: Shortness of Breath Last Admin: 06/15/21 22:29 Dose: 2 mg Documented by: Morphine Sulfate (Morphine 2 Mg/Ml Syringe) 1 mg IVPUSH Q4H [facility] Last Admin: 06/15/21 20:20 Dose: 1 mg Documented by: Sodium Chloride (Sodium Chloride 0.9% 10 Ml Syringe) 10 ml FLUSH ASDIRECTED PRN PRN Reason: Keep Vein Open Discontinued Medications Allopurinol (Allopurinol 100 Mg Tab) 100 mg PO DAILY [facility] Last Admin: 06/15/21 08:09 Dose: 100 mg Documented by: Apixaban (Apixaban 5 Mg Tab) 5 mg PO BID [facility] Last Admin: 06/15/21 08:09 Dose: 5 mg Documented by: Dextrose/Water (50% Dextrose In Water 50 Ml Syringe) 50 ml IVPUSH ONETIME ONE Stop: 06/12/21 17:32 Last Admin: 06/12/21 17:44 Dose: 50 ml Documented by: Dextrose/Water (50% Dextrose In Water 50 Ml Syringe) 50 ml IVPUSH ASDIRECTED PRN PRN Reason: Hypoglycemia Furosemide (Furosemide 40 Mg/4 Ml Vial) 40 mg IVPUSH Q24H [facility] Last Admin: 06/12/21 20:13 Dose: 40 mg Documented by: Furosemide (Furosemide 40 Mg Tab) 40 mg PO DAILY [facility] Last Admin: 06/14/21 08:48 Dose: 40 mg Documented by: Furosemide (Furosemide 20 Mg/2 Ml Vial) 20 mg IVPUSH ONETIME ONE Stop: 06/14/21 14:55 Last Admin: 06/14/21 15:04 Dose: 20 mg Documented by: Furosemide (Furosemide 40 Mg/4 Ml Vial) 40 mg IVPUSH BID [facility] Stop: 06/15/21 20:01 Last Admin: 06/15/21 20:19 Dose: 40 mg Documented by: Furosemide (Furosemide 40 Mg Tab) 40 mg PO BIDDIURETIC [facility] Glucagon (Glucagon,Human Recombinant 1 Mg Vial) 1 mg IM ASDIRECTED PRN PRN Reason: Hypoglycemia Levofloxacin/Dextrose 500 mg/ (Premix) 100 mls @ 100 mls/hr IV Q24H [facility] Stop: 06/12/21 20:59 Last Admin: 06/12/21 20:15 Dose: 100 mls/hr Documented by: Levofloxacin/Dextrose 250 mg/ (Premix) 50 mls @ 50 mls/hr IV Q24H [facility] Last Admin: 06/13/21 21:37 Dose: 50 mls/hr Documented by: Insulin Glargine (Insulin Glarg,Human.Rec.Analog 100 Unit/Ml) 16 unit SUBCUT DAILY [facility] Last Admin: 06/13/21 12:46 Dose: Not Given Documented by: Insulin Human Lispro (Insulin Lispro 100 Units/Ml 3 Ml Vial) 0 unit SUBCUT WITHMEALSANDBED [facility]; Protocol Last Admin: 06/15/21 08:10 Dose: 1 unit Documented by: Lorazepam (Lorazepam 2 Mg/Ml Syringe) 0.5 mg IVPUSH Q6H [facility] Last Admin: 06/15/21 12:07 Dose: 0.5 mg Documented by: Lorazepam (Lorazepam 2 Mg/Ml Syringe) 1 mg IVPUSH Q6H [facility] Last Admin: 06/15/21 17:36 Dose: Not Given Documented by: Magnesium Oxide (Magnesium Oxide 250 Mg Tab) 500 mg PO DAILY [facility] Last Admin: 06/15/21 08:09 Dose: 500 mg Documented by: Morphine Sulfate (Morphine 2 Mg/Ml Syringe) 2 mg IVPUSH ONETIME ONE Stop: 06/14/21 22:21 Last Admin: 06/14/21 22:46 Dose: 2 mg Documented by: Nitrofurantoin Macrocrystals (Nitrofurantoin Monohydrate/Macrocrystalline 100 Mg Cap) 100 mg PO BIDMEALS [facility] Stop: 06/19/21 08:01 Liraglutide [Victoza (] 18 Mg/3 Ml Pen) 1.8 mg SUBCUT DAILY [facility] Last Admin: 06/15/21 11:14 Dose: Not Given Documented by: Ondansetron HCl (Ondansetron 4 Mg/2 Ml Sdv) 4 mg IVPUSH NOW STA Stop: 06/14/21 22:21 Last Admin: 06/14/21 22:43 Dose: 4 mg Documented by: Pantoprazole Sodium (Pantoprazole 40 Mg Vial) 40 mg IVPUSH Q12H [facility] Last Admin: 06/13/21 07:56 Dose: 40 mg Documented by: Pantoprazole Sodium (Pantoprazole 40 Mg Vial) 40 mg IVPUSH Q12H [facility] Last Admin: 06/15/21 08:10 Dose: 40 mg Documented by: Trimethoprim/Sulfamethoxazole (Sulfamethoxazole/Trimethoprim 800-160 Mg Tab) 0.5 tab PO BID [facility] Stop: 06/18/21 20:01 Last Admin: 06/15/21 08:09 Dose: 0.5 tab Documented by: - Exam General: Reports: Other () Lungs: Reports: Other (No breath sounds: Apnea. ) Cardiovascular: Reports: Other (Asystole: No heart sounds. No carotid, femoral pulses. )
[2021-06-16] MEDS ORDERED: Furosemide 40 MG Tab PO SCH (08:00)
== END 2021-06-16 00:22 | disposition expired | DRG 292 ==
LOC: CC.ED 17:26 → CC.MS 18:40 → UNDOADMIN 18:40 → CC.ED 19:19 → CC.MS 19:33
PROVIDERS: ADMIT Physician Assistant Medical; ATTEND Family Medicine
DX: I11.0 Hypertensive heart disease with heart failure (principal); I48.20 Chronic atrial fibrillation, unspecified; N39.0 Urinary tract infection, site not specified; Z51.5 Encounter for palliative care; E11.649 Type 2 diabetes mellitus with hypoglycemia without coma; I50.33 Acute on chronic diastolic (congestive) heart failure; I46.9 Cardiac arrest, cause unspecified; D64.9 Anemia, unspecified; Z93.6 Other artificial openings of urinary tract status; E87.6 Hypokalemia; H54.7 Unspecified visual loss; J30.9 Allergic rhinitis, unspecified; R32 Unspecified urinary incontinence; E78.00 Pure hypercholesterolemia, unspecified; Z95.1 Presence of aortocoronary bypass graft; Z87.440 Personal history of urinary (tract) infections; Z95.2 Presence of prosthetic heart valve; Z90.710 Acquired absence of both cervix and uterus; Z90.49 Acquired absence of other specified parts of digestive tract; Z88.8 Allergy status to other drugs, medicaments and biological substances; Z91.011 Allergy to milk products; Z91.018 Allergy to other foods; Z79.899 Other long term (current) drug therapy; Z79.01 Long term (current) use of anticoagulants; Z79.4 Long term (current) use of insulin; Z95.0 Presence of cardiac pacemaker; Z98.890 Other specified postprocedural states
CPT/HCPCS: 36415; 51702; 71045; 71046; 80048; 81001; 82947; 83880; 85025; 86140; 87086; 87088; 87186; 96374; 97161-GP; 99285-25; A9270-GY; C9113; J1815-GY; J1940; J1956; J2060; J2270; J2405